=== PATIENT | female | born 1985 | race Caucasian/White ===

== ENCOUNTER 2025-02-28 16:01 | Observation (INO) | payer OTHER, SELFPAY ==
[2025-02-28] VITALS (19 sets, daily range): BP systolic 116–134; BP diastolic 60–76; PULSE 83–119; RESP 20–27; TEMP 36.6–37.2; O2SAT 95–100
--- NOTE | ~2025-02-28 | CT_ITS ---
EXAMINATION: CTA chest PE abdomen pel DATE: 02/28/2025 21:47 INDICATION: Shortness of breath. TECHNIQUE: Computed tomography angiography (CTA) of the chest was performed with 100 mL Omnipaque-350 intravenous contrast timed to evaluate the pulmonary arteries. Coronal maximum intensity projection 3D-reconstructions were created by the technologist. Computed tomography (CT) of the abdomen and pelvis was performed with intravenous contrast. Automated exposure control and iterative reconstruction technique were employed. The dose-length product was 2255.10 mGy-cm. COMPARISON: None. FINDINGS: CTA chest: There is mild dependent atelectasis bilaterally. No pleural effusion. The heart size is normal. No pericardial effusion. There is no pulmonary embolus. There is a small sliding hiatal hernia. There is mild thoracic spondylosis. CT abdomen and pelvis: The liver, gallbladder, spleen, pancreas, and adrenal glands are normal. There is mild bilateral hydronephrosis. The uterus is enlarged. There is a 7.6 x 13.8 x 13.6 cm mass in the uterus. The appendix is normal. There are no dilated loops of bowel. There are no pathologically en larged lymph nodes. There is physiologic fluid in the pelvis. There is mild lumbar spondylosis. IMPRESSION: 1. No pulmonary embolus. 2. 13.8 cm mass in the uterus. This finding may be a fibroid or a neoplasm such as sarcoma. 3. Mild bilateral hydronephrosis secondary to the enlarged uterus. Reviewed, dictated and finalized at location E.
--- NOTE | ~2025-02-28 | XR_ITS ---
Examination: XR chest 1V portable Clinical History: weak Comparison: None Technique: Portable AP Findings: Heart size normal. Lungs clear. No acute bony abnormality. IMPRESSION: 1. No acute cardiopulmonary findings given portable technique. Reviewed, dictated and finalized at location R.
--- NOTE | ~2025-02-28 | US_ITS ---
EXAMINATION: US pelvic complete DATE: 03/01/2025 16:12 INDICATION: Gravid uterus versus fibroids on prior CT TECHNIQUE: Multiple transabdominal sonographic images of the pelvis were obtained. COMPARISON: CT dated 02/28/2025 FINDINGS: The uterus measures 17.8 x 8.6 x 14.9 cm. The endometrial complex is expanded by a 14.6 x 13.5 x 6.1 cm soft tissue mass with heterogeneous echogenicity and with internal vascular flow on color Doppler. The right ovary measures 3.4 x 2.4 x 2.0 cm. The left ovary measures 3.6 x 2.9 x 3.7 cm. Vascular flow identified in both ovaries on color Doppler. There is no free fluid in the pelvis. IMPRESSION: 1. 14.6 x 13.5 x 6.1 cm soft tissue mass centrally within the uterus for which differential would include submucosal fibroid, large endometrial polyp or endometrial carcinoma. Would consider hysteroscopy for further evaluation. Reviewed, dictated and finalized at location A. IMPRESSION: 1. 14.6 x 13.5 x 6.1 cm soft tissue mass centrally within the uterus for which differential would include submucosal fibroid, large endometrial polyp or endom etrial carcinoma. Would consider hysteroscopy for further evaluation.
--- NOTE | ~2025-02-28 | CT_ITS ---
CT HEAD NON-CONTRAST Clinical History: hypersomnolence Comparison: None Technique: Unenhanced axial images skull base to vertex Coronal, sagittal reformats CT images acquired with automatic exposure control for dose reduction DLP: 681 mGy-cm Findings: Sulci, ventricles: Unremarkable. No intracerebral hemorrhage. No evidence acute territorial infarct. No mass effect, midline shift. Bony calvarium intact. Visualized paranasal sinuses: Left maxillary retention cyst. Mastoid air cells: Clear. IMPRESSION: 1. No acute intracranial findings. Reviewed, dictated and finalized at location R.
--- NOTE | 2025-02-28 18:05 | ED.GENADULT ---
HPI - General Adult General Chief complaint: Weakness <Tracie Parks, FIELD SERVICE CONSULTANT - Last Filed: 02/28/25 18:08> Stated complaint: dehydrated, weak, slept outside in heat 3 days <Trcaie Hartman September, FIELD SERVICE CONSULTANT - Last Filed: 02/28/25 18:08> Time Seen by Provider: 02/28/25 18:05 <Tracie Hartman September, FIELD SERVICE CONSULTANT - Last Filed: 02/28/25 18:08> Focused HPI: Elsy Clark is a 39 y/o female who presents with reports of not being able to eat or drink for the past 3 days. She says she was d/c from [facility] 3 days ago and when she got home she was locked out of her apartment, and cannot get in. She has been stuck outside for three days without help. GENERAL: Well-appearing, well-nourished, and in no acute distress. HEAD: Normocephalic, atraumatic. CHEST: Clear to auscultation. ?No respiratory distress. HEART: Regular rate and rhythm.? NEURO: ?Alert and oriented x3. Patient screened in triage and initial orders placed.? ?Additional care and disposition to be based upon?diagnostic testing and treatment. <Tracie Harmtan September, FIELD SERVICE CONSULTANT - Last Filed: 02/28/25 18:08> History of Present Illness HPI narrative: Agree with the above with the following additions/ corrections: patient denies any unilateral weakness head is instead a generalized weakness. She feels dehydrated. She lost her keys in did have her phone and this is why she was locked out of her apartment for 3 days. She states she could not contact anyone and the help that was supposed to arrive did not show up so instead she slept on the ground. She feels like she has the and rash from the grafts then because she urinated on herself she states her genitals And buttock hurt. She had no food or water. She denies any chest pain but has had a cough productive of sputum and feels short of breath. She states before this she had been having 3 days worth of diarrhea, 10 small bowel movements daily. She says her throat feels sore to swallow. <Vani Taylor MD - Last Filed: 03/02/25 08:13> Related Data Home medications: Home Medications ?Medication ?Instructions ?Recorded ?Confirmed ?Last Taken ?Type haloperidol 10 mg tablet 10 mg PO BID 03/01/25 03/01/25 Unknown History <Tracie Parks FIELD SERVICE CONSULTANT - Last Filed: 02/28/25 18:08> Allergies/adverse reactions: Allergies Allergy/AdvReac Type Severity Reaction Status Date / Time bee venom protein (honey Allergy Unknown Verified 03/01/25 03:03 bee) (bees) <Tracie Parks, FIELD SERVICE CONSULTANT - Last Filed: 02/28/25 18:08> [facility] Family History Family History: Family History (Updated 03/01/25 @ 03:00 by Betty Vasquez RN) Other Unknown family medical history <Tracie Parks, FIELD SERVICE CONSULTANT - Last Filed: 02/28/25 18:08> Social History Social History: Social History Smoking packs per day: 1 Smoking cigarettes per day: 20.0 Smoking status: Current every day smoker Tobacco type: cigarettes Alcohol intake: never Substance use: never Substance use type: does not use Lack of Transportation: YES Lack of Food: Never True Current Housing: I Have Housing Concerned About Future Housing: No Difficulty Paying Gas/Electric Bills: No Difficulty Paying for Meds: No Currently Unemployed: No Education: High School Diploma/GED Difficulty w/ Childcare or Family Care: No Spiritual care concerns: No <Tracie Parks, FIELD SERVICE CONSULTANT - Last Filed: 02/28/25 18:08> Exam Narrative: GENERAL: Well-appearing, well-nourished, and in no acute distress. HEAD: Normocephalic, atraumatic. EYES: Non injected, non icteric ENT: Nares clear, no rhinorrhea or epistaxis. Gross auditory acuity intact. Tacky mucous membranes. NECK: Supple. No meningismus. CHEST: Speaking in full sentences. No respiratory distress. HEART: Regular rate and rhythm. ABDOMEN: Soft, nondistended. No rigidity or guarding. Not peritoneal. EXTREMITIES: Normal range of motion. No lower extremity edema. SKIN: Warm, dry, no rash. NEURO: No focal deficits. Alert and oriented. Answering questions. Following commands. Normal speech without aphasia or dysarthria. PSYCH: Normal mood and affect. <Vani Taylor MD - Last Filed: 03/02/25 08:13> Course Vital Signs Vital signs: Vital Signs Temperature 97.8 F 02/28/25 16:07 Pulse Rate 100 02/28/25 16:07 Respiratory Rate 20 02/28/25 16:07 Blood Pressure 119/60 02/28/25 16:07 Pulse Oximetry 99 02/28/25 16:07 Oxygen Delivery Room Air 02/28/25 16:07 Temperature 97.8 F 03/02/25 03:22 Pulse Rate 89 03/02/25 03:22 Respiratory Rate 18 03/02/25 03:22 Blood Pressure 107/66 03/02/25 03:22 Pulse Oximetry 99 03/02/25 03:22 Oxygen Delivery Room Air 03/01/25 20:00 <Tracie Parks, FIELD SERVICE CONSULTANT - Last Filed: 02/28/25 18:08> Vital Signs Temperature 97.8 F 02/28/25 16:07 Pulse Rate 100 02/28/25 16:07 Respiratory Rate 20 02/28/25 16:07 Blood Pressure 119/60 02/28/25 16:07 Pulse Oximetry 99 02/28/25 16:07 Oxygen Delivery Room Air 02/28/25 16:07 Temperature 97.8 F 03/02/25 03:22 Pulse Rate 89 03/02/25 03:22 Respiratory Rate 18 03/02/25 03:22 Blood Pressure 107/66 03/02/25 03:22 Pulse Oximetry 99 03/02/25 03:22 Oxygen Delivery Room Air 03/01/25 20:00 <Vani Taylor MD - Last Filed: 03/02/25 08:13> Medical Decision Making MDM Narrative Medical decision making narrative: Patient presents with report of generalized weakness and concern her dehydration. She reports that she accidentally locked herself out of her apartment and was a bit unable to get inside so she instead slept outside but past 3 days was without food or water. In the ED she has vital signs within normal limits. She has a leukocytosis with a microcytic anemia , no prior for comparison. 1 L IV fluids ordered though I suspect stress response versus dehydration. She has a hyponatremia with no prior for comparison though 125. CPK within normal limits. PERC Rule not used due to HR = 100. Urinalysis only with trace ketones. Otherwise no signs of infection or marked dehydration. UDS And alcohol negative. TSH normal. Dimer greater than 2. Will proceed with CTA PE imaging and add abdomen and pelvis as well given her recent diarrhea and her nonspecific leukocytosis. test negative. BNP is mildly elevated although CXR normal. CTA still pending. Viral panel negative. Is reported the patient ambulates without any issue. I did discuss with the radiologist who interpreted patient's study as gravid uterus who confirms that it is not gravid but rather enlarged and with heterogeneous material more consistent with fibroids. Beta HCG quant <2.39. Nurse reports that patient continues to keep falling asleep on her assessments. Will obtain CT noncontrast. Patient is reassessed at 00:05. she is very somnolent. She will awake to verbal stimuli but keeps falling back asleep. She is protecting her airway however. She denies using any drugs recently. I did note that if she continued to be so sleepy and out of it like she is she would have to be admitted. She states I am sorry. Do not admit me. I just need to get my surgery and go home. when I asked what she meant she states for my leukemia. I asked her to tell me more, who had diagnosed her/told her she had leukemia and she states, I don't know...I think I might be confused. She at first states that she walked to a dollar store and purchased a phone but then she states that her phone is locked in the house she can not get into. Nurse does try to get a hold of Joey, her father. Because of patient's somnolence even when reassessed, I do believe she will need admitted. Although her hyponatremia of 125 is not particularly low, given her baseline is unknown and it is theoretically possible that her baseline is in the 140s for example, this may represent a precipitous decline. Repeat BMP is ordered as are urine Cr and 'lytes and patient is discussed with on-call hospitalist Dr. Guthrie. He recommends med tele. her temperature has been checked twice and she has remained afebrile. She is not hyper or hypotensive nor tachycardic. Nothing to suggest serotonin syndrome. Patient's psych medications have been written by Syed Harrison, a psychiatrist. Haldol recently filled though unknown if picked up/taking. <Vani Taylor MD - Last Filed: 03/02/25 08:13> Differential Diagnosis Differential Diagnosis: pneumonia, urinary tract infection, electrolyte abnormalities, rhabdomyolysis, symptomatic anemia, psycho genic <Vani Taylor MD - Last Filed: 03/02/25 08:13> Medical Records Medical records reviewed: Yes I reviewed the external patient's medical records. <Vani Taylor MD - Last Filed: 03/02/25 08:13> Medical records narrative: Patient has psychiatric medications per review of her home medication list/previous fills. <Vani Taylor MD - Last Filed: 03/02/25 08:13> Vital Signs Vital Signs: Vital Signs Temperature 97.8 F 02/28/25 16:07 Pulse Rate 100 02/28/25 16:07 Respiratory Rate 20 02/28/25 16:07 Blood Pressure 119/60 02/28/25 16:07 Pulse Oximetry 99 02/28/25 16:07 Oxygen Delivery Room Air 02/28/25 16:07 Temperature 97.8 F 03/02/25 03:22 Pulse Rate 89 03/02/25 03:22 Respiratory Rate 18 03/02/25 03:22 Blood Pressure 107/66 03/02/25 03:22 Pulse Oximetry 99 03/02/25 03:22 Oxygen Delivery Room Air 03/01/25 20:00 <Tracie Parks APRN - Last Filed: 02/28/25 18:08> Vital Signs Temperature 97.8 F 02/28/25 16:07 Pulse Rate 100 02/28/25 16:07 Respiratory Rate 20 02/28/25 16:07 Blood Pressure 119/60 02/28/25 16:07 Pulse Oximetry 99 02/28/25 16:07 Oxygen Delivery Room Air 02/28/25 16:07 Temperature 97.8 F 03/02/25 03:22 Pulse Rate 89 03/02/25 03:22 Respiratory Rate 18 03/02/25 03:22 Blood Pressure 107/66 03/02/25 03:22 Pulse Oximetry 99 03/02/25 03:22 Oxygen Delivery Room Air 03/01/25 20:00 <Vani Taylor MD - Last Filed: 03/02/25 08:13> Lab Data Result diagrams: 03/02/25 05:20 03/02/25 05:20 <Tracie Parks, FIELD SERVICE CONSULTANT - Last Filed: 02/28/25 18:08> Labs: Lab Results 02/28/25 02/28/25 02/28/25 Range/Units 18:23 18:59 19:48 WBC 16.6 H (4.5-10.0) K/mm3 RBC 4.32 (4.2-5.4) M/mm3 Hgb 9.4 L (12.0-15.0) g/dL Hct 31.8 L (37.0-47.0) % MCV 73.6 L (80-100) fl MCH 21.8 L (26-34) pg MCHC 29.6 L (32-36) g/dl RDW 23.3 H (11.5-14.5) % Plt Count 351 (150-375) k/mm3 MPV 11.0 H (7.4-10.4) fl Immature Gran % (Auto) 0.6 H (0-0.5) % Neut % (Auto) 80.6 H (45.5-73.1) % Lymph % (Auto) 12.7 L (18.3-44.2) % [place] % (Auto) 4.5 (2.6-8.5) % Eos % (Auto) 1.3 (0-4.4) % Baso % (Auto) 0.3 (0.2-1.2) % Lymph # (Auto) 2.11 (0.9-3.2) K/mm3 [place] # (Auto) 0.8 H (0.1-0.6) K/mm3 Eos # (Auto) 0.2 (0-0.3) K/mm3 Baso # (Auto) 0.1 (0.0-0.1) K/mm3 Abs Immat Gran (auto) 0.10 H (0.00-0.031) K/mm3 Absolute Neuts (auto) 13.4 H (1.3-6.7) K/mm3 Absolute Nucleated RBC 0.000 (0.0-0.012) K/mm3 Band Neutrophils % 0 (0-6) % Nucleated RBC % 0.0 (0.0-0.2) % Platelet Estimate Adequate (Adequate) % Immature Plt Fraction 6.1 (0.9-11.2) % Hypochromasia 1+ Anisocytosis 3+ Microcytosis 2+ (NORMAL) Schistocytes None seen D-Dimer 2.64 H (<0.48) ug/mL Sodium 125 L (137-145) mmol/L Potassium 4.7 (3.4-5.0) mmol/L Chloride 96 L (98-107) mmol/L Carbon Dioxide 18 L (22-30) mmol/L Anion Gap 11 (4-12) mmol/L BUN 5 L (7-17) mg/dL Creatinine 0.51 L (0.7-1.0) mg/dL Estim Creat Clear Calc Not Reportable Estimated GFR > 60 (59 - ) Glucose 104 (65-110) mg/dL Calcium 9.4 (8.4-10.2) mg/dL Magnesium 1.8 (1.6-2.3) mg/dL Total Bilirubin 0.9 (0.2-1.3) mg/dL AST 37 H (14-36) U/L ALT 26 (6-35) U/L Alkaline Phosphatase 69 (38-126) U/L Total Creatine Kinase 64 (30-135) U/L NT-Pro-B Natriuret Pep 403 H (19.9-100) pg/mL Total Protein 8.0 (6.3-8.2) g/dL Albumin 4.5 (3.5-5.1) g/dL TSH 1.420 (0.465-4.680) uIU/mL Serum HCG, Qual Negative Beta HCG, Quant < 2.39 mIU/ML Urine Color Yellow (Yellow) Urine Appearance Clear (Clear) Urine pH 6.0 (5.0-9.0) Ur Specific [place] 1.004 (1.001-1.035) Urine Protein Negative (Negative) mg/dL Urine Glucose (UA) Negative (Negative) mg/dL Urine Ketones Trace H (Negative) mg/dL Ur Blood (Man) Negative (Negative) Urine Nitrate Negative (Negative) Urine Bilirubin Negative (Negative) Urine Urobilinogen 0.2 (<2.0) mg/dL Leukocyte Esterase Rfl Negative (Negative) DENY/UL Urine Osmolality Pending Ur Random Sodium 6 meq/L Urine Creatinine 33.0 mg/dL Urine Opiates Screen Negative (Negative) Urine Methadone Screen Negative (Negative) Ur Barbiturates Screen Negative (Negative) Ur Phencyclidine Scrn Negative (Negative) Ur Amphetamine Screen Negative (Negative) U Benzodiazepines Scrn Negative (Negative) Urine Cocaine Screen Negative (Negative) U Cannabinoids Screen Negative (Negative) Ethyl Alcohol < 10 (<10) mg/dL Influenza A (RT-PCR) Negative (Negative) Influenza B (RT-PCR) Negative (Negative) RSV (RT-PCR) Negative (Negative) SARS-CoV-2 RNA (RT-PCR) Negative (Negative) <Tracie Parks, FIELD SERVICE CONSULTANT - Last Filed: 02/28/25 18:08> Lab Results 02/28/25 02/28/25 02/28/25 Range/Units 18:23 18:59 19:48 WBC 16.6 H (4.5-10.0) K/mm3 RBC 4.32 (4.2-5.4) M/mm3 Hgb 9.4 L (12.0-15.0) g/dL Hct 31.8 L (37.0-47.0) % MCV 73.6 L (80-100) fl MCH 21.8 L (26-34) pg MCHC 29.6 L (32-36) g/dl RDW 23.3 H (11.5-14.5) % Plt Count 351 (150-375) k/mm3 MPV 11.0 H (7.4-10.4) fl Immature Gran % (Auto) 0.6 H (0-0.5) % Neut % (Auto) 80.6 H (45.5-73.1) % Lymph % (Auto) 12.7 L (18.3-44.2) % [place] % (Auto) 4.5 (2.6-8.5) % Eos % (Auto) 1.3 (0-4.4) % Baso % (Auto) 0.3 (0.2-1.2) % Lymph # (Auto) 2.11 (0.9-3.2) K/mm3 [place] # (Auto) 0.8 H (0.1-0.6) K/mm3 Eos # (Auto) 0.2 (0-0.3) K/mm3 Baso # (Auto) 0.1 (0.0-0.1) K/mm3 Abs Immat Gran (auto) 0.10 H (0.00-0.031) K/mm3 Absolute Neuts (auto) 13.4 H (1.3-6.7) K/mm3 Absolute Nucleated RBC 0.000 (0.0-0.012) K/mm3 Band Neutrophils % 0 (0-6) % Nucleated RBC % 0.0 (0.0-0.2) % Platelet Estimate Adequate (Adequate) % Immature Plt Fraction 6.1 (0.9-11.2) % Hypochromasia 1+ Anisocytosis 3+ Microcytosis 2+ (NORMAL) Schistocytes None seen D-Dimer 2.64 H (<0.48) ug/mL Sodium 125 L (137-145) mmol/L Potassium 4.7 (3.4-5.0) mmol/L Chloride 96 L (98-107) mmol/L Carbon Dioxide 18 L (22-30) mmol/L Anion Gap 11 (4-12) mmol/L BUN 5 L (7-17) mg/dL Creatinine 0.51 L (0.7-1.0) mg/dL Estim Creat Clear Calc Not Reportable Estimated GFR > 60 (59 - ) Glucose 104 (65-110) mg/dL Calcium 9.4 (8.4-10.2) mg/dL Magnesium 1.8 (1.6-2.3) mg/dL Total Bilirubin 0.9 (0.2-1.3) mg/dL AST 37 H (14-36) U/L ALT 26 (6-35) U/L Alkaline Phosphatase 69 (38-126) U/L Total Creatine Kinase 64 (30-135) U/L NT-Pro-B Natriuret Pep 403 H (19.9-100) pg/mL Total Protein 8.0 (6.3-8.2) g/dL Albumin 4.5 (3.5-5.1) g/dL TSH 1.420 (0.465-4.680) uIU/mL Serum HCG, Qual Negative Beta HCG, Quant < 2.39 mIU/ML Urine Color Yellow (Yellow) Urine Appearance Clear (Clear) Urine pH 6.0 (5.0-9.0) Ur Specific [place] 1.004 (1.001-1.035) Urine Protein Negative (Negative) mg/dL Urine Glucose (UA) Negative (Negative) mg/dL Urine Ketones Trace H (Negative) mg/dL Ur Blood (Man) Negative (Negative) Urine Nitrate Negative (Negative) Urine Bilirubin Negative (Negative) Urine Urobilinogen 0.2 (<2.0) mg/dL Leukocyte Esterase Rfl Negative (Negative) DENY/UL Urine Osmolality Pending Ur Random Sodium 6 meq/L Urine Creatinine 33.0 mg/dL Urine Opiates Screen Negative (Negative) Urine Methadone Screen Negative (Negative) Ur Barbiturates Screen Negative (Negative) Ur Phencyclidine Scrn Negative (Negative) Ur Amphetamine Screen Negative (Negative) U Benzodiazepines Scrn Negative (Negative) Urine Cocaine Screen Negative (Negative) U Cannabinoids Screen Negative (Negative) Ethyl Alcohol < 10 (<10) mg/dL Influenza A (RT-PCR) Negative (Negative) Influenza B (RT-PCR) Negative (Negative) RSV (RT-PCR) Negative (Negative) SARS-CoV-2 RNA (RT-PCR) Negative (Negative) <Vani Taylor MD - Last Filed: 03/02/25 08:13> Imaging Data Attestation: I personally reviewed and interpreted this imaging study as follows: <Vani Taylor MD - Last Filed: 03/02/25 08:13> My impression: patient does have a very enlarged but heterogenous appearing uterus on my independent interpretation of CT <Vani Taylor MD - Last Filed: 03/02/25 08:13> Radiologist's impression: CTA Chest Stat Rad: Respiratory motion limits evaluation. No evidence of acute main / proximal central pulmonary embolism. Normal caliber aorta without evidence of dissection. No focal consolidation, pleural effusion or pneumothorax. CT abdomen pelvis with contrast stat rad: Gravid uterus. no bowel obstruction or inflammation. Normal appendix. Mild bilateral hydroureteronephrosis secondary to extrinsic compression. No free air or ascites. No biliary dilatation or calcified gallstone. CT Head stat rad: no evidence of acute intracranial abnormality. No ICH, mass effect or edema. No skull fracture. <Vani Taylor MD - Last Filed: 03/02/25 08:13> ECG Data EKG #1: Attestation: I personally reviewed and interpreted this ECG as follows: <Vani Taylor MD - Last Filed: 03/02/25 08:13> ECG completion date: 02/28/25 <Vnai Taylor MD - Last Filed: 03/02/25 08:13> ECG completion time: 19:20 <Vani Taylor MD - Last Filed: 03/02/25 08:13> Prior ECG tracings: not available for review ( None in the EMR) <Vani Taylor MD - Last Filed: 03/02/25 08:13> Interpretation: Normal sinus rhythm at a rate of 84 beats per minute. OK interval 161. QRS 77. QT / QTC 359/425. Good R-wave progression across the precordial leads. No T-wave inversions. <Vani Taylor MD - Last Filed: 03/02/25 08:13> Discharge Plan Discharge Clinical Impression: Leukocytosis, Microcytic anemia, Hyponatremia, Generalized weakness, Elevated brain natriuretic peptide (BNP) level, Altered mental status, Enlarged uterus <Tracie Parks APRN - Last Filed: 02/28/25 18:08> Patient Disposition: Still a Patient <Tracie Parks APRN - Last Filed: 02/28/25 18:08> Condition: Stable <Tracie Parks APRN - Last Filed: 02/28/25 18:08> Time of Disposition: 00:57 <Tracie Parks APRN - Last Filed: 02/28/25 18:08> 00:57 <Vani Taylor MD - Last Filed: 03/02/25 08:13>
[2025-02-28 18:35] LABS: Hematocrit 31.8 % (37.0-47.0); Hemoglobin 9.4 g/dL (12.0-15.0); Immature Granulocyte Percent A 0.6 % (0-0.5); Immature Platelet Fraction Pct 6.1 % (0.9-11.2); Lymphocytes Absolute Auto 2.11 K/mm3 (0.9-3.2); Mean Corpuscular HGB Conc 29.6 g/dl (32-36); Mean Corpuscular Hemoglobin 21.8 pg (26-34); Mean Corpuscular Volume 73.6 fl (80-100); Nucleated Red Blood Cells Absolute Auto 0.000 K/mm3 (0.0-0.012); Nucleated Red Blood Cells Perc 0.0 % (0.0-0.2); Platelet Count Result 351 k/mm3 (150-375); Red Blood Count 4.32 M/mm3 (4.2-5.4); White Blood Count 16.6 K/mm3 (4.5-10.0)
[2025-02-28 18:48] LABS: Alanine Aminotransferase 26 U/L (6-35); Albumin Level 4.5 g/dL (3.5-5.1); Alkaline Phosphatase 69 U/L (38-126); Anion Gap 11 mmol/L (4-12); Aspartate Amino Transferase 37 U/L (14-36); Bilirubin,Total 0.9 mg/dL (0.2-1.3); Blood Urea Nitrogen 5 mg/dL (7-17); Calcium 9.4 mg/dL (8.4-10.2); Carbon Dioxide 18 mmol/L (22-30); Chloride 96 mmol/L (98-107); Estimated Glomerular Filt Rate > 60; Glucose 104 mg/dL (65-110); Potassium 4.7 mmol/L (3.4-5.0); Sodium 125 mmol/L (137-145); Total Protein 8.0 g/dL (6.3-8.2)
--- NOTE | 2025-02-28 19:05 | ECG_ITS ---
Test Date: 2025-02-28 19:20:15 Measurements Intervals [place] Rate: 84 P: 43 NE: 161 QRS: 63 QRSD: 77 T: 23 QT: 359 QTc: 425 Interpretive Statements SINUS RHYTHM POSSIBLE LEFT ATRIAL ENLARGEMENT BASELINE ARTIFACT- I, III, AVR, AVL, AVF, V1-V2, V4-V6 BORDERLINE ECG No previous ECG available for comparison Electronically Signed On 02-28-2025 19:21:44 CDT by Jose Daniel Erwin D.O.
[2025-02-28 19:07] LABS: Band Neutrophils Percent 0 % (0-6); Schistocytes None Seen
[2025-02-28 19:08] LABS: Anisocytosis 3+; Hypochromasia 1+; Microcytosis 2+ (NORMAL)
[2025-02-28 19:19] LABS: Creatine Kinase 64 U/L (30-135)
[2025-02-28 19:39] LABS: Add Urine Microscopic? NO; Appearance Urine Clear (Clear); Glucose Urine UA Negative (Negative); Leukocyte Esterase Ur Negative LEU/UL (Negative); Nitrate Urine Negative (Negative); Specific Grav Ur 1.004 (1.001-1.035)
[2025-02-28 19:40] LABS: Cannabinoid Screen Urine Negative (Negative)
[2025-02-28] MEDS: SODIUM CHLORIDE 0.9% IV 1,000 ML 999 ML IV CONT (19:45)
[2025-02-28 19:51] LABS: Thyroid Stimulating Hormone 1.420 uIU/mL (0.465-4.680)
[2025-02-28 20:27] LABS: Influenza A QL RT-PCR Negative (Negative); Influenza B QL RT-PCR Negative (Negative); RSV RNA, RT-PCR Negative (Negative); SARS-CoV-2 RNA PCR Negative (Negative)
[2025-02-28 20:32] LABS: Magnesium 1.8 mg/dL (1.6-2.3)
[2025-02-28 20:48] LABS: NT Pro B Type Natriuretic Pept 403 pg/mL (19.9-100)
[2025-02-28 21:09] LABS: SPREG INTERNAL CONTROL Positive; Serum Qual hCG Negative
[2025-02-28 22:50] LABS: Beta HCG Quantitative < 2.39 mIU/ML
[2025-03-01] VITALS (15 sets, daily range): BP systolic 109–129; BP diastolic 52–66; PULSE 92–100; RESP 18–20; TEMP 36.5–36.6; O2SAT 95–100; BMI 35.3
--- NOTE | 2025-03-01 00:15 | PC.NURSE ---
Attempted to call family and left a voice message.
[2025-03-01 01:31] LABS: Anion Gap 6 mmol/L (4-12); Blood Urea Nitrogen 3 mg/dL (7-17); Calcium 8.8 mg/dL (8.4-10.2); Carbon Dioxide 21 mmol/L (22-30); Chloride 104 mmol/L (98-107); Estimated Glomerular Filt Rate > 60; Glucose 98 mg/dL (65-110); Potassium 3.9 mmol/L (3.4-5.0); Sodium 131 mmol/L (137-145)
--- NOTE | 2025-03-01 01:36 | PM.IMHP ---
H&P: HPI History of Present Illness Date/Time: 03/01/25 01:36 Chief Complaint: Dehydration Narrative: 39-year-old female with history of schizophrenia presents to [facility] ER on 02/28/2025 complaining of dehydration. She was discharged from [facility] 3 days prior. When she returned home she was locked out of her apartment, she reports she has been lying in the grass, she has not eaten or drinking much. Reports she was hospitalized at [facility] for schizophrenia, had diarrhea at the time but does not anymore. She tells me she was prescribed for medications, 1 was Haldol, another was time? (thyme)? But she cannot remember the other medications otherwise. She tells me she did not get them from a pharmacy but they gave them to her when she was discharged and that she was taking them.. She tells me she was not prescribed/on any medications prior to the [facility] admission. She dozes off the exam he keeps her eyes closed a continues to talk in provide a somewhat reliable history. She is A&O x3, tells me she feels as she has schizophrenia actively at this moment because she feels her body is wrapped in a blanket, otherwise she denies delusions or hallucinations. She is pleasant and cooperative otherwise. Medication review includes benztropine last filled in 2023, vitamin D 2 field in 2023 hydroxy is seen field in December 2024, olanzapine failed 12/21/2024, held off filled on 02/27/2025 at the dose of 10 mg daily. Review of Systems Review of Systems: All systems reviewed & are unremarkable except as noted in HPI and below (Subjective) Meds Home Medications and Allergies Allergies Allergy/AdvReac Type Severity Reaction Status Date / Time No Known Drug Allergies Allergy Verified 01/09/12 17:07 Vital Signs Vital Signs - 24 hr 02/28/25 16:07 02/28/25 18:58 02/28/25 18:59 Temperature 97.8 F 99.0 F Pulse Rate 100 90 90 Respiratory Rate 20 20 Blood Pressure 119/60 Pulse Oximetry 99 98 Oxygen Delivery Room Air 02/28/25 18:59 02/28/25 19:28 02/28/25 19:30 Temperature Pulse Rate 83 119 H Respiratory Rate 23 H 22 H Blood Pressure Pulse Oximetry 97 98 98 Oxygen Delivery Room Air 02/28/25 19:43 02/28/25 19:45 02/28/25 20:00 Temperature Pulse Rate 91 84 93 Respiratory Rate 26 H 26 H 25 H Blood Pressure 116/72 Pulse Oximetry 98 98 98 Oxygen Delivery 02/28/25 20:01 02/28/25 20:15 02/28/25 20:30 Temperature Pulse Rate 87 90 96 Respiratory Rate 22 H 24 H 26 H Blood Pressure 121/73 Pulse Oximetry 98 98 98 Oxygen Delivery 02/28/25 20:53 02/28/25 21:00 02/28/25 22:03 Temperature Pulse Rate 89 100 Respiratory Rate 22 H 27 H Blood Pressure Pulse Oximetry 98 100 96 Oxygen Delivery 02/28/25 22:41 02/28/25 23:15 02/28/25 23:21 Temperature Pulse Rate Respiratory Rate Blood Pressure 134/76 121/62 Pulse Oximetry 95 95 Oxygen Delivery 02/28/25 23:31 Temperature Pulse Rate Respiratory Rate Blood Pressure Pulse Oximetry 97 Oxygen Delivery Exam Const: General: comfortable and no acute distress Other: A&O x3 HENMT: Mouth: Yes dry mucous membranes Neck: Neck: supple Resp: Effort & Inspection: normal respiratory effort Auscultation: clear to auscultation bilaterally Cardio: Rate: regular rate Rhythm: regular rhythm Heart sounds: no murmurs GI: Inspection: non-distended GI Palp: Yes Soft to palpation : General: Yes bladder normal to palpation Neuro: Motor exam (neuro): 5/5 motor strength present throughout Extrem: Other: Trace pitting edema bilateral lower extremities H&P: Results Labs Labs: Short CBC 02/28/25 Range/Units 18:23 WBC 16.6 H (4.5-10.0) K/mm3 Hgb 9.4 L (12.0-15.0) g/dL Hct 31.8 L (37.0-47.0) % Plt Count 351 (150-375) k/mm3 BMP 02/28/25 03/01/25 18:23 01:08 Sodium 125 L 131 L Potassium 4.7 3.9 Chloride 96 L 104 Carbon Dioxide 18 L 21 L BUN 5 L 3 L Creatinine 0.51 L 0.53 L Glucose 104 98 Calcium 9.4 8.8 Cardiac Enzymes 02/28/25 Range/Units 18:23 Total Creatine Kinase 64 (30-135) U/L Liver Function 02/28/25 Range/Units 18:23 Total Bilirubin 0.9 (0.2-1.3) mg/dL AST 37 H (14-36) U/L ALT 26 (6-35) U/L Alkaline Phosphatase 69 (38-126) U/L Albumin 4.5 (3.5-5.1) g/dL Urine 02/28/25 Range/Units 18:59 Urine Color Yellow (Yellow) Urine Appearance Clear (Clear) Urine pH 6.0 (5.0-9.0) Ur Specific [place] 1.004 (1.001-1.035) Urine Protein Negative (Negative) mg/dL Urine Glucose (UA) Negative (Negative) mg/dL Assessment and Plan Assessment and plan (1) Hyponatremia: Code(s): E87.1 - Hypo-osmolality and hyponatremia Status: Acute (2) Elevated brain natriuretic peptide (BNP) level: Code(s): R79.89 - Other specified abnormal findings of blood chemistry Status: Acute (3) Leukocytosis: Code(s): D72.829 - Elevated white blood cell count, unspecified Status: Acute (4) Altered mental status: Code(s): R41.82 - Altered mental status, unspecified Status: Acute Plan 39-year-old female with history of schizophrenia presents to [facility] ER on 02/28/2025 complaining of dehydration. She was discharged from [facility] 3 days prior. When she returned home she was locked out of her apartment, she reports she has been lying in the grass, she has not eaten or drinking much. Reports she was hospitalized at [facility] for schizophrenia, had diarrhea at the time but does not anymore. She tells me she was prescribed for medications, 1 was Haldol, another was time? (thyme)? But she cannot remember the other medications otherwise. She tells me she did not get them from a pharmacy but they gave them to her when she was discharged and that she was taking them.. She tells me she was not prescribed/on any medications prior to the [facility] admission. She dozes off the exam he keeps her eyes closed a continues to talk in provide a somewhat reliable history. She is A&O x3, tells me she feels as she has schizophrenia actively at this moment because she feels her body is wrapped in a blanket, otherwise she denies delusions or hallucinations. She is pleasant and cooperative otherwise. Medication review includes benztropine last filled in 2023, vitamin D 2 field in 2023 hydroxy is seen field in December 2024, olanzapine failed 12/21/2024, held off filled on 02/27/2025 at the dose of 10 mg daily. ----- Hyponatremia: Upon arrival her sodium is 125. We have no baseline to compare. She was just hospitalized recently, had diarrhea at that time, after discharge she reports she is not had much to eat or drink in 3 days. Clinically, she appears dry. She received 1 L normal saline bolus in the ER and her sodium is now 131. At this time we will hold off any more fluids and recheck the BMP in another 4 hours. It is unclear whether her odd behaviors due to hyponatremia but it is unlikely. Obtain records from [facility]. Leukocytosis: Chest x-ray, CT chest abdomen pelvis, urinalysis, head CT did not demonstrate any infectious cause, this is more likely due to dehydration. Afebrile. Continue to monitor. Elevated BMP: She has trace pitting edema, otherwise does not appear fluid overloaded, more so clinically hypovolemic. Altered mental status: Unclear baseline, she reports schizophrenia and feels as if she has active schizophrenia now. Obtain records from [facility], it is unclear whether she is experiencing adverse effects of haloperidol or other antipsychotics or if she is currently undertreated for schizophrenia. Consult Psychiatry. Quad viral screen, U tox, urinalysis did not demonstrate any specific cause to cause altered mental status. CT head without acute findings. Continue to monitor otherwise. Incidentally she is found to have gravid uterus? Serum beta HCG negative. ER physician tells me she spoke with Radiology and it is not gravid uterus but fibroids. Patient does not have any suprapubic pain, will order transvaginal ultrasound. Follow-up with OB Gyne. ----- Patient wishes to be full code. SCDs. Saline lock IV. Fall precautions, ambulate with assistance. Hospitalist MIPS Advance Care Plan I have confirmed that the patient's Advanced Care Plan is present, code status is documented, or surrogate decision maker is listed in patient medical record.: Yes Medication Reconciliation I have utilized all available resources to obtain, update and review the patients current medications (includes all prescriptions, OTC, herbals, cannabis, and nutritional supplements).: Yes
--- NOTE | 2025-03-01 02:35 | ADMGEN ---
This patient, Elsy Clark, was admitted to Medical Room 253-01. Patient/family oriented to hospital policies and general routines including ID bracelet, bed and alarms, visiting hours, pain management, procedures, bathroom and other care routines, personal items, smoking policy, room service/diet, and visiting hours. Information on how to activate the Rapid Response Team has been discussed. Patient/Family are encouraged to report perceived risks to care and to ask questions if they do not understand what they are told or what they should do.
[2025-03-01 04:26] LABS: Hematocrit 29.5 % (37.0-47.0); Hemoglobin 8.6 g/dL (12.0-15.0); Immature Granulocyte Percent A 0.3 % (0-0.5); Lymphocytes Absolute Auto 2.05 K/mm3 (0.9-3.2); Mean Corpuscular HGB Conc 29.2 g/dl (32-36); Mean Corpuscular Hemoglobin 22.1 pg (26-34); Mean Corpuscular Volume 75.6 fl (80-100); Nucleated Red Blood Cells Absolute Auto 0.000 K/mm3 (0.0-0.012); Nucleated Red Blood Cells Perc 0.0 % (0.0-0.2); Platelet Count Result 361 k/mm3 (150-375); Red Blood Count 3.90 M/mm3 (4.2-5.4); White Blood Count 9.3 K/mm3 (4.5-10.0)
[2025-03-01 04:40] LABS: Anion Gap 8 mmol/L (4-12); Blood Urea Nitrogen 3 mg/dL (7-17); Calcium 8.7 mg/dL (8.4-10.2); Carbon Dioxide 20 mmol/L (22-30); Chloride 105 mmol/L (98-107); Estimated CRCL calculation 115 ml/min; Estimated Glomerular Filt Rate > 60; Glucose 88 mg/dL (65-110); Magnesium 2.1 mg/dL (1.6-2.3); Potassium 3.7 mmol/L (3.4-5.0); Sodium 133 mmol/L (137-145)
[2025-03-01 05:00] LABS: Anisocytosis 2+; Schistocytes None Seen
[2025-03-01 05:01] LABS: Hypochromasia 1+
[2025-03-01 05:02] LABS: Ovalocytes 1+
[2025-03-01 05:04] LABS: Polychromasia Occasional
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
--- NOTE | 2025-03-01 12:45 | PC.NURSE ---
father's phone number provided to KHUSHBOO Hanna following her visit with pt
--- NOTE | 2025-03-01 15:41 | PM.IMPN ---
Progress Note: A&P Assessment and Plan (1) Hyponatremia: Code(s): E87.1 - Hypo-osmolality and hyponatremia Status: Acute (2) Elevated brain natriuretic peptide (BNP) level: Code(s): R79.89 - Other specified abnormal findings of blood chemistry Status: Acute (3) Leukocytosis: Code(s): D72.829 - Elevated white blood cell count, unspecified Status: Acute (4) Altered mental status: Code(s): R41.82 - Altered mental status, unspecified Status: Acute Plan 39-year-old female with history of schizophrenia presents to [facility] ER on 02/28/2025 complaining of dehydration. She was discharged from [facility] 3 days prior. When she returned home she was locked out of her apartment, she reports she has been lying in the grass, she has not eaten or drinking much. Reports she was hospitalized at [facility] for schizophrenia, had diarrhea at the time but does not anymore. She tells me she was prescribed for medications, 1 was Haldol, another was time? (thyme)? But she cannot remember the other medications otherwise. She tells me she did not get them from a pharmacy but they gave them to her when she was discharged and that she was taking them.. She tells me she was not prescribed/on any medications prior to the [facility] admission. She dozes off the exam he keeps her eyes closed a continues to talk in provide a somewhat reliable history. She is A&O x3, tells me she feels as she has schizophrenia actively at this moment because she feels her body is wrapped in a blanket, otherwise she denies delusions or hallucinations. She is pleasant and cooperative otherwise. Medication review includes benztropine last filled in 2023, vitamin D 2 field in 2023 hydroxy is seen field in December 2024, olanzapine failed 12/21/2024, held off filled on 02/27/2025 at the dose of 10 mg daily. ----- Hyponatremia: Upon arrival her sodium is 125. We have no baseline to compare. She was just hospitalized recently, had diarrhea at that time, after discharge she reports she is not had much to eat or drink in 3 days. Clinically, she appears dry. She received 1 L normal saline bolus in the ER and her sodium is now 131. At this time we will hold off any more fluids and recheck the BMP in another 4 hours. It is unclear whether her odd behaviors due to hyponatremia but it is unlikely. Obtain records from [facility]. Leukocytosis: Chest x-ray, CT chest abdomen pelvis, urinalysis, head CT did not demonstrate any infectious cause, this is more likely due to dehydration. Afebrile. Continue to monitor. Elevated BMP: She has trace pitting edema, otherwise does not appear fluid overloaded, more so clinically hypovolemic. Altered mental status: Unclear baseline, she reports schizophrenia and feels as if she has active schizophrenia now. Obtain records from [facility], it is unclear whether she is experiencing adverse effects of haloperidol or other antipsychotics or if she is currently undertreated for schizophrenia. Consult Psychiatry. Quad viral screen, U tox, urinalysis did not demonstrate any specific cause to cause altered mental status. CT head without acute findings. Continue to monitor otherwise. Incidentally she is found to have gravid uterus? Serum beta HCG negative. ER physician tells me she spoke with Radiology and it is not gravid uterus but fibroids. Patient does not have any suprapubic pain, will order transvaginal ultrasound. Follow-up with OB Gyne. ----- Patient wishes to be full code. SCDs. Saline lock IV. Fall precautions, ambulate with assistance. 03/01 haldol 10 mg bid started as directed per [facility] Time Spent With Patient Time with patient: 25 - 35 minutes Subjective Date/time seen: 03/01/25 15:41 Interval history: 39-year-old female with history of schizophrenia presents to [facility] ER on 02/28/2025 complaining of dehydration. She was discharged from [facility] 3 days prior. When she returned home she was locked out of her apartment, she reports she has been lying in the grass, she has not eaten or drinking much. Reports she was hospitalized at [facility] for schizophrenia, had diarrhea at the time but does not anymore. She tells me she was prescribed for medications, 1 was Haldol, another was time? (thyme)? But she cannot remember the other medications otherwise. She tells me she did not get them from a pharmacy but they gave them to her when she was discharged and that she was taking them.. She tells me she was not prescribed/on any medications prior to the [facility] admission. She dozes off the exam he keeps her eyes closed a continues to talk in provide a somewhat reliable history. She is A&O x3, tells me she feels as she has schizophrenia actively at this moment because she feels her body is wrapped in a blanket, otherwise she denies delusions or hallucinations. She is pleasant and cooperative otherwise. Medication review includes benztropine last filled in 2023, vitamin D 2 field in 2023 hydroxy is seen field in December 2024, olanzapine failed 12/21/2024, held off filled on 02/27/2025 at the dose of 10 mg daily. pt is seen and examined. psych is following Review of Systems Review of Systems: All systems reviewed & are unremarkable except as noted in HPI and below (Subjective) Exam Const: General: comfortable and no acute distress Other: A&O x3 HENMT: Mouth: Yes dry mucous membranes Neck: Neck: supple Resp: Effort & Inspection: normal respiratory effort Auscultation: clear to auscultation bilaterally Cardio: Rate: regular rate Rhythm: regular rhythm Heart sounds: no murmurs GI: Inspection: non-distended : General: Yes bladder normal to palpation Bimanual exam- vagina & uterus: bladder normal to palpation Neuro: Motor exam (neuro): 5/5 motor strength present throughout Extrem: Other: Trace pitting edema bilateral lower extremities Objective Data Vital Signs Vital Signs: Vital Signs - 24 hr 02/28/25 16:07 02/28/25 18:58 02/28/25 18:59 Temperature 97.8 F 99.0 F Pulse Rate 100 90 90 Respiratory Rate 20 20 Blood Pressure 119/60 Pulse Oximetry 99 98 Oxygen Delivery Room Air 02/28/25 18:59 02/28/25 19:28 02/28/25 19:30 Temperature Pulse Rate 83 119 H Respiratory Rate 23 H 22 H Blood Pressure Pulse Oximetry 97 98 98 Oxygen Delivery Room Air 02/28/25 19:43 02/28/25 19:45 02/28/25 20:00 Temperature Pulse Rate 91 84 93 Respiratory Rate 26 H 26 H 25 H Blood Pressure 116/72 Pulse Oximetry 98 98 98 Oxygen Delivery 02/28/25 20:01 02/28/25 20:15 02/28/25 20:30 Temperature Pulse Rate 87 90 96 Respiratory Rate 22 H 24 H 26 H Blood Pressure 121/73 Pulse Oximetry 98 98 98 Oxygen Delivery 02/28/25 20:53 02/28/25 21:00 02/28/25 22:03 Temperature Pulse Rate 89 100 Respiratory Rate 22 H 27 H Blood Pressure Pulse Oximetry 98 100 96 Oxygen Delivery 02/28/25 22:41 02/28/25 23:15 02/28/25 23:21 Temperature Pulse Rate Respiratory Rate Blood Pressure 134/76 121/62 Pulse Oximetry 95 95 Oxygen Delivery 02/28/25 23:31 02/28/25 23:52 03/01/25 00:02 Temperature Pulse Rate Respiratory Rate Blood Pressure Pulse Oximetry 97 96 96 Oxygen Delivery 03/01/25 00:15 03/01/25 00:21 03/01/25 00:30 Temperature Pulse Rate Respiratory Rate Blood Pressure 129/66 Pulse Oximetry 96 96 96 Oxygen Delivery 03/01/25 01:10 03/01/25 01:35 03/01/25 01:41 Temperature Pulse Rate Respiratory Rate Blood Pressure 129/66 Pulse Oximetry 96 96 95 Oxygen Delivery 03/01/25 02:35 03/01/25 02:52 03/01/25 03:35 Temperature 97.7 F 97.7 F Pulse Rate 97 92 92 Respiratory Rate 20 20 Blood Pressure 111/57 L 117/57 L Pulse Oximetry 97 97 Oxygen Delivery 03/01/25 04:00 03/01/25 05:25 03/01/25 08:00 Temperature Pulse Rate 100 94 Respiratory Rate Blood Pressure Pulse Oximetry Oxygen Delivery Room Air 03/01/25 08:40 03/01/25 14:39 Temperature 97.9 F Pulse Rate 93 Respiratory Rate 20 Blood Pressure 120/64 Pulse Oximetry 100 Oxygen Delivery Room Air Intake/Output Intake/Output: Intake & Output 02/26/25 02/27/25 02/28/25 03/01/25 23:59 23:59 23:59 23:59 Intake Total 1000 720 Balance 1000 720 Meds/Results Medications: Active Medications Generic Name Dose Route Start Last Admin Trade Name Freq PRN Reason Stop Dose Admin Acetaminophen 650 mg 03/01/25 00:58 Acetaminophen 325 Mg Tablet PO Q4H PRN Mild Pain (1-3) or Fever Ondansetron HCl 4 mg 03/01/25 00:58 Ondansetron Inj 4 Mg/2 Ml Vial IV PUSH Q4H PRN Nausea Radiology Results: ITS Impressions Chest X-Ray 02/28/25 19:14 IMPRESSION: 1. No acute cardiopulmonary findings given portable technique. Head CT 03/01/25 07:33 IMPRESSION: 1. No acute intracranial findings. Chest/Abdomen/Pelvis CTA 03/01/25 08:15 IMPRESSION: 1. No pulmonary embolus. 2. 13.8 cm mass in the uterus. This finding may be a fibroid or a neoplasm such as sarcoma. 3. Mild bilateral hydronephrosis secondary to the enlarged uterus. Labs Labs: Laboratory Results - last 24 hr 02/28/25 02/28/25 02/28/25 18:23 18:59 19:48 WBC 16.6 H RBC 4.32 Hgb 9.4 L Hct 31.8 L MCV 73.6 L MCH 21.8 L MCHC 29.6 L RDW 23.3 H Plt Count 351 MPV 11.0 H Immature Gran % (Auto) 0.6 H Neut % (Auto) 80.6 H Lymph % (Auto) 12.7 L Dixon % (Auto) 4.5 Eos % (Auto) 1.3 Baso % (Auto) 0.3 Lymph # (Auto) 2.11 Dixon # (Auto) 0.8 H Eos # (Auto) 0.2 Baso # (Auto) 0.1 Abs Immat Gran (auto) 0.10 H Absolute Neuts (auto) 13.4 H Absolute Nucleated RBC 0.000 Band Neutrophils % 0 Nucleated RBC % 0.0 Platelet Estimate Adequate % Immature Plt Fraction 6.1 Polychromasia Hypochromasia 1+ Anisocytosis 3+ Microcytosis 2+ Ovalocytes Schistocytes None seen D-Dimer 2.64 H Sodium 125 L Potassium 4.7 Chloride 96 L Carbon Dioxide 18 L Anion Gap 11 BUN 5 L Creatinine 0.51 L Estim Creat Clear Calc Not Reportable Estimated GFR > 60 Glucose 104 Calcium 9.4 Phosphorus Magnesium 1.8 Total Bilirubin 0.9 AST 37 H ALT 26 Alkaline Phosphatase 69 Total Creatine Kinase 64 NT-Pro-B Natriuret Pep 403 H Total Protein 8.0 Albumin 4.5 TSH 1.420 Serum HCG, Qual Negative Beta HCG, Quant < 2.39 Urine Color Yellow Urine Appearance Clear Urine pH 6.0 Ur Specific [place] 1.004 Urine Protein Negative Urine Glucose (UA) Negative Urine Ketones Trace H Ur Blood (Man) Negative Urine Nitrate Negative Urine Bilirubin Negative Urine Urobilinogen 0.2 Leukocyte Esterase Rfl Negative Ur Random Sodium 6 Urine Creatinine 33.0 Urine Opiates Screen Negative Urine Methadone Screen Negative Ur Barbiturates Screen Negative Ur Phencyclidine Scrn Negative Ur Amphetamine Screen Negative U Benzodiazepines Scrn Negative Urine Cocaine Screen Negative U Cannabinoids Screen Negative Ethyl Alcohol < 10 Influenza A (RT-PCR) Negative Influenza B (RT-PCR) Negative RSV (RT-PCR) Negative SARS-CoV-2 RNA (RT-PCR) Negative 03/01/25 03/01/25 01:08 04:11 WBC 9.3 RBC 3.90 L Hgb 8.6 L Hct 29.5 L MCV 75.6 L MCH 22.1 L MCHC 29.2 L RDW 23.8 H Plt Count 361 MPV 11.7 H Immature Gran % (Auto) 0.3 Neut % (Auto) 66.0 Lymph % (Auto) 22.1 Dixon % (Auto) 6.9 Eos % (Auto) 4.2 Baso % (Auto) 0.5 Lymph # (Auto) 2.05 Dixon # (Auto) 0.6 Eos # (Auto) 0.4 H Baso # (Auto) 0.1 Abs Immat Gran (auto) 0.03 Absolute Neuts (auto) 6.1 Absolute Nucleated RBC 0.000 Band Neutrophils % Not Reportable Nucleated RBC % 0.0 Platelet Estimate Adequate % Immature Plt Fraction Polychromasia Occasional Hypochromasia 1+ Anisocytosis 2+ Microcytosis Ovalocytes 1+ Schistocytes None seen D-Dimer Sodium 131 L 133 L Potassium 3.9 3.7 Chloride 104 105 Carbon Dioxide 21 L 20 L Anion Gap 6 8 BUN 3 L 3 L Creatinine 0.53 L 0.57 L Estim Creat Clear Calc Not Reportable 115 Estimated GFR > 60 > 60 Glucose 98 88 Calcium 8.8 8.7 Phosphorus 3.6 Magnesium 2.1 Total Bilirubin AST ALT Alkaline Phosphatase Total Creatine Kinase NT-Pro-B Natriuret Pep Total Protein Albumin TSH Serum HCG, Qual Beta HCG, Quant Urine Color Urine Appearance Urine pH Ur Specific [place] Urine Protein Urine Glucose (UA) Urine Ketones Ur Blood (Man) Urine Nitrate Urine Bilirubin Urine Urobilinogen Leukocyte Esterase Rfl Ur Random Sodium Urine Creatinine Urine Opiates Screen Urine Methadone Screen Ur Barbiturates Screen Ur Phencyclidine Scrn Ur Amphetamine Screen U Benzodiazepines Scrn Urine Cocaine Screen U Cannabinoids Screen Ethyl Alcohol Influenza A (RT-PCR) Influenza B (RT-PCR) RSV (RT-PCR) SARS-CoV-2 RNA (RT-PCR)
[2025-03-01] MEDS: HALOPERIDOL 5 MG TABLET 10 MG PO (17:55)
[2025-03-01] MEDS: ACETAMINOPHEN 325 MG TABLET 650 MG PO (22:16)
[2025-03-02 03:22] VITALS: BP 107/66; PULSE 89; RESP 18; TEMP 36.6; O2SAT 99
[2025-03-02 05:49] LABS: Hematocrit 28.1 % (37.0-47.0); Hemoglobin 8.1 g/dL (12.0-15.0); Immature Platelet Fraction Pct 4.2 % (0.9-11.2); Mean Corpuscular HGB Conc 28.8 g/dl (32-36); Mean Corpuscular Hemoglobin 21.8 pg (26-34); Mean Corpuscular Volume 75.7 fl (80-100); Platelet Count Result 295 k/mm3 (150-375); Red Blood Count 3.71 M/mm3 (4.2-5.4); White Blood Count 10.3 K/mm3 (4.5-10.0)
[2025-03-02 06:16] LABS: Anion Gap 4 mmol/L (4-12); Blood Urea Nitrogen 6 mg/dL (7-17); Calcium 8.4 mg/dL (8.4-10.2); Carbon Dioxide 23 mmol/L (22-30); Chloride 107 mmol/L (98-107); Estimated CRCL calculation 118 ml/min; Estimated Glomerular Filt Rate > 60; Glucose 86 mg/dL (65-110); Potassium 3.7 mmol/L (3.4-5.0); Sodium 134 mmol/L (137-145)
[2025-03-02] MEDS: HALOPERIDOL 5 MG TABLET 10 MG PO (08:22)
--- NOTE | 2025-03-02 12:34 | PM.DS ---
DS: Admitting Diagnosis Discharge Date 03/02 Admitting Diagnosis hyponatremia DS: Summary Hospital Course Hospital Course: 39-year-old female with history of schizophrenia presents to [facility] ER on 02/28/2025 complaining of dehydration. She was discharged from [facility] 3 days prior. When she returned home she was locked out of her apartment, she reports she has been lying in the grass, she has not eaten or drinking much. Reports she was hospitalized at [facility] for schizophrenia, had diarrhea at the time but does not anymore. She tells me she was prescribed for medications, 1 was Haldol, another was time? (thyme)? But she cannot remember the other medications otherwise. She tells me she did not get them from a pharmacy but they gave them to her when she was discharged and that she was taking them.. She tells me she was not prescribed/on any medications prior to the [facility] admission. She dozes off the exam he keeps her eyes closed a continues to talk in provide a somewhat reliable history. She is A&O x3, tells me she feels as she has schizophrenia actively at this moment because she feels her body is wrapped in a blanket, otherwise she denies delusions or hallucinations. She is pleasant and cooperative otherwise. Medication review includes benztropine last filled in 2023, vitamin D 2 field in 2023 hydroxy is seen field in December 2024, olanzapine failed 12/21/2024, held off filled on 02/27/2025 at the dose of 10 mg daily. Hyponatremia resolved. Psych was consulted and saw pt for an eval. Care coordination was following for placement/further f/u. Recommendations from psych are: Elsy was given Haldol Decanoate 200 mg on February 27, 2025 and was discharged on Haldol 10 mg twice a day. She should continue Haldol PO 10 mg BID for several weeks before being tapered off while assessed by a psychiatric care provider to monitor for destabilization and side effects. Status at Discharge Functional status at discharge: independent ambulation Overall status at discharge: patient is progressing back to baseline Time Spent with Patient Time attestation: Total time spent providing and/or coordinating discharge services: Time spent: Less than 30 minutes Exam Const: General: comfortable Cardio: Rate: regular rate Rhythm: regular rhythm GI: GI Palp: Yes Soft to palpation Auscultation: normal bowel sounds DS: Data Data Completed and Pending Labs on day of discharge: Labs from last 24 hours 03/02/25 05:20 WBC 10.3 H RBC 3.71 L Hgb 8.1 L Hct 28.1 L MCV 75.7 L MCH 21.8 L MCHC 28.8 L RDW 23.9 H Plt Count 295 MPV 11.1 H % Immature Plt Fraction 4.2 Sodium 134 L Potassium 3.7 Chloride 107 Carbon Dioxide 23 Anion Gap 4 BUN 6 L Creatinine 0.56 L Estim Creat Clear Calc 118 Estimated GFR > 60 Glucose 86 Calcium 8.4 Discharge Plan Discharge Attending physician on discharge: Wilfredo Dale Consulting providers: Harris Ladd Discharging Clinician: Kimberly Cuellar Patient Disposition: Home Activity: may shower Diet: regular Discharge Instructions: PLease continue Haldol PO 10 mg twice a day for several weeks before being tapered off while assessed by a psychiatric care provider to monitor for destabilization and side effects. Please f/u with your psych within a week after discharge or sooner if needed. If you have any suicidal ideation, please come to ED right away. Patient Instructions: Antibiotic Form Patient Language: Kyrgyz Stand Alone Forms: General Discharge Information Follow-up/Referrals: PHYSICIAN,REGISTERED DENTAL HYGIENIST [Primary Care Provider, Internal Medicine] - 2 Weeks Discharge Medications: Continued haloperidol 10 mg tablet 10 mg PO BID Date of admission: 03/01/25 00:58 Primary Care Provider: PHYSICIAN,REGISTERED DENTAL HYGIENIST Admitting Provider: Priya Guthrie Attending physician on admission: Priya Guthrie Condition: Stable Hospitalist MIPS Heart Failure (Exclusion) Patient has history of Heart Transplant or Left Ventricular Assistive Device?: No IF YES, STOP HERE Heart Failure (Qualifier) Patient has current or prior documentation of LVEF less than or equal to 40%, or mod/servere depressed LVSF?: No IF NO, STOP HERE
[2025-03-06 11:08] LABS: Osmolality, Serum 266 mOsmol/kg (275-295)
[2025-03-06 12:08] LABS: Osmolality, Urine 110 mOsmol/kg (.)
== END 2025-03-02 15:03 | disposition home or self-care (01) ==
LOC: ANHED 03-01 00:57 → ANH2MED 03-01 12:27
PROVIDERS: Nurse Practitioner; Nurse Practitioner Family; Admitting Provider General Practice; Emergency Provider Student in an Organized Health Care Education/Training Program; Visit Provider Internal Medicine
DX: F20.9 Schizophrenia, unspecified (principal); R41.82 Altered mental status, unspecified; F32.89 Other specified depressive episodes; E87.1 Hypo-osmolality and hyponatremia; R79.89 Other specified abnormal findings of blood chemistry; D72.829 Elevated white blood cell count, unspecified; N13.1 Hydronephrosis with ureteral stricture, not elsewhere classified; N85.2 Hypertrophy of uterus; E86.0 Dehydration; D50.9 Iron deficiency anemia, unspecified; R05.9 Cough, unspecified; Z20.822 Contact with and (suspected) exposure to COVID-19; F17.210 Nicotine dependence, cigarettes, uncomplicated
CPT/HCPCS: 36415; 70450; 71045; 71275; 74177; 76856; 80048; 80053; 80307; 81003; 82077; 82550; 82570; 83735; 83880; 83930; 83935; 84100; 84300; 84443; 84702; 84703; 85025; 85027; 85055; 85380; 87637; 93005; 96360; 99285; A9270; G0378; J7030; Q9967

== ENCOUNTER 2025-03-05 17:59 | Emergency (ER) | payer OTHER, SELFPAY ==
--- OUTSIDE RECORDS SUMMARY | 2025-03-05 18:02 | XMS_ITS | Encounter Summary ---
Author Organization [facility] Address [address] [place] [address] Phone Care Team Providers Care Cement Worker Name Role Phone Isabella Serna MD Unavailable [phone] Betty Lao Primary Care Provider + Reason for Visit * Reason Comments Medication Refill Encounter Details Date Type Department Care Team (Late st Contact Info) Description 09/16/2024 Refill [facility] - [facility] [address] [place] [id number] Betty Lao PAC [address] [place] [address] Medication Refill Social History Tobacco Use Types Packs/Day Years Used Date Smoking Tobacco: Every Day Cigarettes Smokeless Tobacco: Never Alcohol Use Standard Drinks/Week Comments No 0 (1 standard drink = 0.6 oz pur e alcohol) PHQ-2 Answer Date Recorded Total Score - Questions 1-9 0 02/21 Sexually Active Control Partners Comments Never Comments No Sex and Gender Information Value Date Recorded Sex Assigned at Not on file Legal Sex Female 7:34 PM CDT Gender Identity Not on file Sexual Orientation Not on file documented as of this encounter Miscellaneous Notes * Telephone Encounter - Betty Lao PAC - 09/18/2024 5:49 PM CDT Will recheck labs at next ov and see if needed * Telephone Encounter - Libia Villavicencio RN - 09/18/2024 10:41 AM CDT Medication failed the protocol, provider to review and approve the medication order if appropriate. Requested Prescriptions Pending Prescriptions Disp Refills ergocalciferol (VITAMIN D) 97667 UNIT Capsule [Pharmacy Med Name: VITAMIN D2 1.25MG(50,000 UNIT)] 12 Capsule 0 Sig: TAKE 1 CAPSULE BY MOUTH ONCE A WEEK Vitamin Supplements (Adult) Protocol Failed - 09/18/2024 10:41 AM Failed - Vitamin D dose not greater than 1.25mg Passed - Visit with relevant provider in past 12 months or upcoming 90 days Recent Visits No visits were found meeting these conditions. Showing recent visits within past 365 days and meeting all other requirements Future Appointments Date Type Provider Dept 09/22/24 Appointment Betty Lao PAC [facility] Showing future appointments within next 90 days and meeting all other requirements documented in this encounter Plan of Treatment Not on file documented as of this encounter Visit Diagnoses Diagnosis Vitamin D deficiency Unspecified vitamin D deficiency documented in this encounter Additional Health Concerns Assessment Noted Time PHQ-9 Depression Total Score: 0 03/05/20 23 12:57 PM CDT documented as of this encounter Care Teams Cement Worker Relationship Specialty Start Date End Date Betty Lao PAC [address] [place] [address] PCP - General Physician Sales And Marketing Analyst 05/15/21 Isabella Serna MD Psychiatry 08/28/16 documented as of this encounter
--- OUTSIDE RECORDS SUMMARY | 2025-03-05 18:02 | XMS_ITS | Encounter Summary ---
Author Organization [facility] Address [address] [place] [address] Phone Care Team Providers Care Operator Control Room Name Role Phone Isabella Serna MD Unavailable [phone] Betty Lao Primary Care Provider + Reason for Visit * Reason Comments Medication Refill Encounter Details Date Type Department Care Team (Late st Contact Info) Description 10/07/2023 Refill [facility] - [facility] Medicine [facility] [address] [place] [phone] Betty Lao PAC [address] [place] [address] Medication Refill Social History Tobacco Use Types [...] encounter Miscellaneous Notes * Telephone Encounter - Jana Johansen RN - 10/07/2023 3:25 PM CDT Last Vit D level was 12 ng/mL on 03-05-23 Do you want to fill or have pt get Vit D lab drawn? Per nursing clinical judgement, provider to review and approve the medication(s) order(s) if appropriate. Requested Prescriptions Pending Prescriptions Disp Refills ergocalciferol (VITAMIN D) 59355 UNIT Capsule [Pharmacy Med Name: VITAMIN D2 1.25MG(50,000 UNIT)] 12 Capsule 1 Sig: TAKE 1 CAPSULE BY MOUTH ONCE A WEEK Vitamin Supplements (Adult) Protocol Passed - 10/07/2023 3:22 PM Passed - Visit with relevant provider in past 12 months or upcoming 90 days Recent Visits Date Type Provider Dept 03/05/23 Office Visit Betty Lao PAC [facility] Showing recent visits within past 365 days and meeting all other requirements Future Appointments No visits were found meeting these conditions. Showing future appointments within next 90 days and meeting all other requirements Passed - Vitamin D dose not greater than 1.25mg documented in this encounter Plan of Treatment Not on file documented as of this encounter Visit Diagnoses Diagnosis Vitamin D deficiency Unspecified vitamin D deficiency documented in this encounter Additional Health Concerns Assessment Noted Time PHQ-9 Depression Total Score: 0 03/05/20 12:57 PM CDT documented as of this encounter Care Teams Operator Control Room Relationship Specialty Start Date End Date Betty Lao PAC [address] [place] [address] PCP - General Physician Cold Roll Inspector 05/15/21 Isabella Serna MD Psychiatry 08/28/16 documented as of this encounter
--- OUTSIDE RECORDS SUMMARY | 2025-03-05 18:02 | XMS_ITS | Encounter Summary ---
Author Organization [facility] Address [address] [place] [address] Phone Care Team Providers Care Tripe Cooker Name Role Phone Isabella Serna MD Unavailable [phone] Betyt Lao Primary Care Provider + Reason for Visit * Reason Comments Medication Refill Encounter Details Date Type Department Care Team (Late st Contact Info) Description 12/11/2022 Refill [facility] - Family Medicine - [place] [address] [place] [id number] Betty Lao PAC [address] [place] [address] Medication Refill Social History Tobacco Use Types Packs/Day Years Used Date Smoking Tobacco: Every Day Cigarettes Smokeless Tobacco: Never Alcohol Use Standard Drinks/Week Comments No 0 (1 standard drink = 0.6 oz pur e alcohol) Sexually Active Control Partners Comments Never Comments No Sex and Gender Information Value Date Recorded Sex Assigned at Not on file Legal Sex Female 7:34 PM CDT Gender Identity Not on file Sexual Orientation Not on file documented as of this encounter Miscellaneous Notes * Telephone Encounter - Libia Villavicencio RN - 12/11/2022 1:25 PM CDT Needs appointment - last appt more than 1 year ago - cancellations and a No Show since last appt. documented in this encounter Plan of Treatment Not on file documented as of this encounter Visit Diagnoses Diagnosis Moderate persistent asthma, unspecified whether complicated documented in this encounter Additional Health Concerns Assessment Noted Time PHQ-9 Depression Total Score: 0 09/30/19 18 2:00 PM CDT documented as of this encounter Care Teams Tripe Cooker Relationship Specialty Start Date End Date Betty Lao PAC [address] [place] [address] PCP - General Physician Pe Manager 05/15/21 Isabella Serna MD Psychiatry 08/28/16 documented as of this encounter
[2025-03-05 18:05] VITALS: BP 124/62; PULSE 104; RESP 18; TEMP 36.9; O2SAT 100
--- NOTE | 2025-03-05 21:21 | PC.NURSE ---
called for bloodwork from waiting room, no answer
--- NOTE | 2025-03-05 21:52 | PC.NURSE ---
called pt from waiting room, no answer
--- OUTSIDE RECORDS SUMMARY | 2025-03-05 22:18 | XMS_ITS | Encounter Summary ---
Author Organization [facility] Address [address] [place] [address] Phone Care Team Providers Care Tooler Name Role Phone Isabella Serna MD Unavailable [phone] Betty Lao Primary Care Provider + Reason for Visit * Reason Comments Medication Refill Encounter Details Date Type Department Care Team (Late st Contact Info) Description 10/07/2023 Refill [facility] - Family Medicine [facility] [address] [place] [phone] Betty Lao PAC [address] [place] [address] Medication Refill Social History Tobacco Use Types [...] Pending Prescriptions Disp Refills ergocalciferol (VITAMIN D) 93351 UNIT Capsule [Pharmacy Med Name: VITAMIN D2 1.25MG(50,000 UNIT)] 12 Capsule 1 Sig: TAKE 1 CAPSULE BY MOUTH ONCE A WEEK Vitamin Supplements (Adult) Protocol Passed - 10/07/2023 3:22 PM Passed - Visit with relevant provider in past 12 months or upcoming 90 days Recent Visits Date Type Provider Dept 03/05/23 Office Visit Betty Lao PAC [facility] Showing recent visits within past 365 days [...] documented as of this encounter Care Teams Tooler Relationship Specialty Start Date End Date Betty Lao PAC [address] [place] [address] PCP - General Physician Hat Liner 05/15/21 Isabella Serna MD Psychiatry 08/28/16 documented as of this encounter
--- OUTSIDE RECORDS SUMMARY | 2025-03-05 22:18 | XMS_ITS | Encounter Summary ---
Author Organization [facility] Address [address] [place] [address] Phone Care Team Providers Care Form Building Supervisor Name Role Phone Isabella Serna MD Unavailable [phone] Betty Lao Primary Care Provider + Reason for Visit * Reason Comments Medication Refill Encounter Details Date Type Department Care Team (Late st Contact Info) Description 12/11/2022 Refill [facility] - Family Medicine - [facility] [address] [place] [phone] Betty Lao PAC [address] [place] [address] Medication Refill Social History Tobacco Use Types [...] documented as of this encounter Care Teams Form Building Supervisor Relationship Specialty Start Date End Date Betty Lao PAC [address] [place] [address] PCP - General Physician Highway Maintenance Supervisor 05/15/21 Isabella Serna MD Psychiatry 08/28/16 documented as of this encounter
--- OUTSIDE RECORDS SUMMARY | 2025-03-05 22:18 | XMS_ITS | Encounter Summary ---
Author Organization [facility] Address [address] [place] [address] Phone Care Team Providers Care Diaper Folder Name Role Phone Isabella Serna MD Unavailable [phone] Betty Lao Primary Care Provider + Reason for Visit * Reason Comments Medication Refill Encounter Details Date Type Department Care Team (Late st Contact Info) Description 09/16/2024 Refill [facility] - [facility] [address] [place] [phone] Betty Lao PAC [address] [place] [address] Medication Refill Social History Tobacco Use Types [...] Pending Prescriptions Disp Refills ergocalciferol (VITAMIN D) 14182 UNIT Capsule [Pharmacy Med Name: VITAMIN D2 [...] Provider Dept 09/22/24 Appointment Betty Lao PAC [facility] Showing future appointments within next 90 days [...] documented as of this encounter Care Teams Diaper Folder Relationship Specialty Start Date End Date Betty Lao PAC [address] [place] [address] PCP - General Physician Small Package And Bundle Sorter Clerk 05/15/21 Isabella Serna MD Psychiatry 08/28/16 documented as of this encounter
== END 2025-03-05 21:52 | disposition left against medical advice (07) ==
LOC: ANHED 22:16
DX: R21 Rash and other nonspecific skin eruption (principal)
CPT/HCPCS: 99199

== ENCOUNTER 2025-03-28 14:16 | Emergency (ER) | payer OTHER, SELFPAY ==
--- OUTSIDE RECORDS SUMMARY | 2025-03-27 07:00 | XMS_ITS ---
Author Organization [facility] Address [address] [place] [address] Care Team Providers Care Botanical Technical Officer Name Role Phone Becka Biswas Primary Care Provider Allergies No Known Allergies REASON FOR VISIT Injection Medications Medication SIG (Take, Route, Frequency, Duration) Notes Start Date End Date Status Haloperidol Decanoate 100 MG/ML 2 ML (200mg total) into the muscle every 28 days Intramuscular every 28 days Acti ve Thiamine Active Ferrous Gluconate 324 (38 Fe) MG 1 tablet Orally twice a day Active traZODone HCl 50 MG 1 tablet at bedtime as needed Orally Once a day; Duration: 15 days 03/15/2025 Active Haloperidol 10 MG 1 tablet Orally twice a day Active Propranolol HCl 10 MG 1 tablet on an empty stomach Orally 3 times a day; Duration: 15 days As needed 03/07/2025 Active Social History Sex Assigned At : Social History Observation Description Sex Assigned At Female Vital Signs Weight 182.6 lbs lbs 03/27/2025 Height 66 in 03/27/2025 BMI 29.47 kg/m2 03/27/2025 Blood pressure systolic 100 mm Hg 03/27/20 25 Blood pressure diastolic 60 mm Hg 025 Heart Rate 89 /min 03/27/2025 Oximetry 98 % 03/27/2025 Temperature 98.0 degrees Fahrenheit 03/27/20 25 Respiratory Rate 18 /min 03/27/2025 Encounters Encounter Location Date Provider Diagnosis [facility] [address] [place] [address] 03/27/2025 Becka Biswas Schizophrenia F20.9 Assessments Encounter Date Diagnosis (ICD Code) Assessment Notes Treatment Notes Treatment Clinical Notes Section Notes 03/27/2025 Schizophrenia (ICD-10 - F20.9) Plan Of Treatment Next Appt Details Provider Name:Becka Biswas, 04/24/2025 01:00:00 PM, [address], [place], [address], Medications Administered Medication Instructions Date of Administration Dosage Notes Haldol Decanoate 03/27/2025 200 mg Raine Perez 03/27/2025 01:15 PM DATA ASSISTANT >Given IM RMD, tolerated well. [facility]# [id number]. Progress Notes * Elsy CLARKDOB: [birth year] (40 yo F)Acc No.[id number]:03/27/2025 UNLOCKED PROGRESS NOTE Progress Note Patient: Ezra ADAIRylee Juan Provider: Luisana Biswas APN :1985 A ge:40 Y S ex:Female Date:03/27/2025 Address:[facility] [address], [place], [place] Check In:12:51 PM DATA ASSISTANT Subjective: * Chief Complaints: * 1 . Injection. * Medical History: S chizophrenia, Paranoid personality disorder. * Hospitalization/Major Diagno stic Procedure: bernadette fleming 02/2025. * Medications: T aking Propranolol HCl 10 MG Tablet 1 tablet on an empty stomach Orally 3 times a day As needed, Taking traZODone HCl 50 MG Tablet 1 tablet at bedtime as needed Orally Once a day , Taking Haloperidol 10 MG Tablet 1 tablet Orally twice a day , Taking Thiamine , Taking Ferrous Gluconate 324 (38 Fe) MG Tablet 1 tablet Orally twice a day , Taking Haloperidol Decanoate 100 MG/ML Solution 2 ML (200mg total) into the muscle every 28 days Intramuscular every 28 days * Allergies: N .K.D.A. Objective: * Vitals: I nitials: mdn, Wt:182.6 lbs, Ht: 66, BMI:29.47, BP:100/60, HR:89, Oxygen sat %:98, Temp:98.0, RR:18. Assessment: * Assessment: 1. S ana liliaia - F20.9 (Primary) Plan: * Treatment: * Therapeutic Injections: Haldol decanoate : 200 mg (Dose No:1) (Route: Intramuscular) given by JAYJAY Randolph on right deltoid (Schizophrenia) * Procedure Codes: 9 6372 THER/PROPH/DIAG INJ, SC/IM * * Electronic signature of Leodan Biswas on 03/29/2025 at 01:51 PM DATA ASSISTANT Sign off status: Pending * Provider: Luisana Biswas APN Date: 05/27/2024 Generated for Milind Patel/Mateusz on: 05/29/2024 01:51 PM DATA ASSISTANT
[2025-03-28 14:20] VITALS: BP 130/70; PULSE 96; RESP 18; TEMP 36.2; O2SAT 100
--- NOTE | 2025-03-28 16:12 | ED.GENADULT ---
HPI - General Adult General Chief complaint: Unspecified Stated complaint: burning up Time Seen by Provider: 03/28/25 16:12 Focused HPI: 40 year old female presenting with generalized malaise. Patient states she previously had leukemia and was treated here and believes she has it again. Symptoms started about a week ago including subjective fevers/chills, nausea/vomiting, exhaustion, and dizziness. GENERAL: ill-appearing, and in no acute distress. HEAD: Normocephalic, atraumatic. CHEST: Clear to auscultation. ?No respiratory distress. HEART: Regular rate and rhythm.? NEURO: ?Alert and oriented x3. Patient screened in triage and initial orders placed.? ?Additional care and disposition to be based upon?diagnostic testing and treatment. Related Data Home Medications ?Medication ?Instructions ?Recorded ?Confirmed ?Last Taken ?Type haloperidol 10 mg tablet 10 mg PO BID 03/01/25 03/01/25 Unknown History Allergies Allergy/AdvReac Type Severity Reaction Status Date / Time bee venom protein (honey Allergy Unknown Verified 03/01/25 03:03 bee) (bees) [facility] Family History Family History (Updated 03/01/25 @ 03:00 by Betty Vasquez RN) Other Unknown family medical history Social History Social History Smoking packs per day: 1 Smoking cigarettes per day: 20.0 Tobacco type: cigarettes Alcohol intake: never Substance use: never Substance use type: does not use Lack of Transportation: YES Lack of Food: Never True Current Housing: I Have Housing Concerned About Future Housing: No Difficulty Paying Gas/Electric Bills: No Difficulty Paying for Meds: No Currently Unemployed: No Education: High School Diploma/GED Difficulty w/ Childcare or Family Care: No Spiritual care concerns: No Course Vital Signs Vital signs: Vital Signs Temperature 97.1 F L 03/28/25 14:20 Pulse Rate 96 03/28/25 14:20 Respiratory Rate 18 03/28/25 14:20 Blood Pressure 130/70 03/28/25 14:20 Pulse Oximetry 100 03/28/25 14:20 Temperature 97.1 F L 03/28/25 14:20 Pulse Rate 96 03/28/25 14:20 Respiratory Rate 18 03/28/25 14:20 Blood Pressure 130/70 03/28/25 14:20 Pulse Oximetry 100 03/28/25 14:20 Medical Decision Making Vital Signs Vital Signs: Vital Signs Temperature 97.1 F L 03/28/25 14:20 Pulse Rate 96 03/28/25 14:20 Respiratory Rate 18 03/28/25 14:20 Blood Pressure 130/70 03/28/25 14:20 Pulse Oximetry 100 03/28/25 14:20 Temperature 97.1 F L 03/28/25 14:20 Pulse Rate 96 03/28/25 14:20 Respiratory Rate 18 03/28/25 14:20 Blood Pressure 130/70 03/28/25 14:20 Pulse Oximetry 100 03/28/25 14:20 Discharge Plan Discharge Patient Language: Argentine Prescriptions: No Action haloperidol 10 mg tablet 10 mg PO BID Follow-up/Referrals: UNKNOWN,DOCTOR [Primary Care Provider]
--- NOTE | 2025-03-28 16:49 | ED_ITS ---
HPI - General Adult General Chief complaint: Unspecified <MARI Garay - Last Filed: 03/28/25 16:51> Stated complaint: burning up <MARI Garay - Last Filed: 03/28/25 16:51> Time Seen by Provider: 03/28/25 16:12 <MARI Garay - Last Filed: 03/28/25 16:51> Focused HPI: 40 old female presenting with generalized malaise. Patient states she previously was diagnosed with leukemia and was treated here at [facility]. She endorses that she believes she has it again. Symptoms started about a week ago including subjective fevers/chills, nausea/vomiting, exhaustion, and dizziness. GENERAL: ill-appearing, well-nourished, and in no acute distress. HEAD: Normocephalic, atraumatic. CHEST: Clear to auscultation. ?No respiratory distress. HEART: Regular rate and rhythm.? NEURO: ?Alert and oriented x3. Patient screened in triage and initial orders placed.? ?Additional care and disposition to be based upon?diagnostic testing and treatment. <MARI Garay - Last Filed: 03/28/25 16:51> Focused HPI: 40 old female presenting with generalized malaise. Patient states she previously was diagnosed with leukemia and was treated here at [facility]. She endorses that she believes she has it again. Symptoms started about a week ago including subjective fevers/chills, nausea/vomiting, exhaustion, and dizziness. GENERAL: Ill-appearing, well-nourished, and in no acute distress. HEAD: Normocephalic, atraumatic. CHEST: Clear to auscultation. ?No respiratory distress. HEART: Regular rate and rhythm.? NEURO: ?Alert and oriented x3. Patient screened in triage and initial orders placed.? ?Additional care and disposition to be based upon?diagnostic testing and treatment. <Kalli Griffiths APRN - Last Filed: 03/29/25 02:10> History of Present Illness HPI narrative: I agree with the above HPI. <Kalli Griffiths APRN - Last Filed: 03/29/25 02:10> Related Data Home medications: Home Medications ?Medication ?Instructions ?Recorded ?Confirmed ?Last Taken ?Type haloperidol 10 mg tablet 10 mg PO BID 03/01/25 Unknown History <MARI Garay - Last Filed: 03/28/25 16:51> Allergies/adverse reactions: Allergies Allergy/AdvReac Type Severity Reaction Status Date / Time bee venom protein (honey Allergy Unknown Verified 03/01/25 03:03 bee) (bees) <MARI Garay - Last Filed: 03/28/25 16:51> Review of Systems 2 Review of Systems: All systems reviewed & are unremarkable except as noted in HPI and below <Kalli Griffiths APRN - Last Filed: 03/29/25 02:10> PMFSH Family History Family History: Family History Other Unknown family medical history <MARI Garay - Last Filed: 03/28/25 16:51> Social History Social History: Social History Smoking packs per day: 1 Smoking cigarettes per day: 20.0 Tobacco type: cigarettes Alcohol intake: never Substance use: never Substance use type: does not use Lack of Transportation: YES Lack of Food: Never True Current Housing: I Have Housing Concerned About Future Housing: No Difficulty Paying Gas/Electric Bills: No Difficulty Paying for Meds: No Currently Unemployed: No Education: High School Diploma/GED Difficulty w/ Childcare or Family Care: No Spiritual care concerns: No <MARI Garay - Last Filed: 03/28/25 16:51> Exam 2 Narrative: GENERAL: Ill appearing, well-nourished, non-toxic, in no acute distress. HEAD: Normocephalic, atraumatic. NECK: Supple. No adenopathy, no masses. RESPIRATORY: Airway patent, respirations nonlabored. Clear to auscultation bilaterally, no rales, rhonchi, wheezing. CARDIOVASCULAR: Regular rate and rhythm without murmurs, rubs, or gallops. Peripheral pulses 2+ and equal bilaterally. ABDOMINAL: Soft, nontender, nondistended, no hepatosplenomegaly. Normoactive BS. MUSCULOSKELETAL: Moves all extremities. Strength/ROM intact without gross deformities. SKIN: Warm, dry, normal color. No rashes. NEURO: A&O X3. Speech clear. Cranial nerves II-XII intact. No ataxic movements. PSYCHIATRIC: Appropriate mood and affect. Normal interaction. <Kalli Griffiths, EUGENIE - Last Filed: 03/29/25 02:10> Course Vital Signs Vital signs: Vital Signs Temperature 36.2 C L 03/28/25 14:20 Pulse Rate 96 03/28/25 14:20 Respiratory Rate 18 03/28/25 14:20 Blood Pressure 130/70 03/28/25 14:20 Pulse Oximetry 100 03/28/25 14:20 Temperature 36.2 C L 03/28/25 14:20 Pulse Rate 93 03/28/25 19:19 Respiratory Rate 18 03/28/25 19:19 Blood Pressure 117/62 03/28/25 19:19 Pulse Oximetry 100 03/28/25 19:19 Oxygen Delivery Room Air 03/28/25 16:55 <MARI Garay - Last Filed: 03/28/25 16:51> Vital Signs Temperature 36.2 C L 03/28/25 14:20 Pulse Rate 96 03/28/25 14:20 Respiratory Rate 18 03/28/25 14:20 Blood Pressure 130/70 03/28/25 14:20 Pulse Oximetry 100 03/28/25 14:20 Temperature 36.2 C L 03/28/25 14:20 Pulse Rate 93 03/28/25 19:19 Respiratory Rate 18 03/28/25 19:19 Blood Pressure 117/62 03/28/25 19:19 Pulse Oximetry 100 03/28/25 19:19 Oxygen Delivery Room Air 03/28/25 16:55 <Kalli Griffiths, VOLUNTEER FIREFIGHTER - Last Filed: 03/29/25 02:10> Medical Decision Making MDM Narrative Medical decision making narrative: 40 year old female presenting with generalized malaise. Patient states she previously was diagnosed with leukemia and was treated here at [facility]. She endorses that she believes she has it again. Symptoms started about a week ago including subjective fevers/chills, nausea/vomiting, exhaustion, and dizziness. Upon time of reexamination patient reports she has had to move positions every 15 minutes and feels as though she has to maurer for relief. FIREWORKS INSPECTOR told pt it sounds like she's having a manic episode and asked if she has a history of bipolar disorder. Pt reports she does and she's feeling a lot of anxiety. She also reports, I'd like to go back to [place] where she last received mental health treatment. Plan to have pt evaluated by mental health intake. Labs Ordered: CBC, CMP, UA, UDS, ethanol, salicylate, TSH, Tylenol Imaging Ordered: None necessary Medications Ordered: Ativan 1 mg p.o., Macrobid 100 mg p.o. Results: Patient's chemistry indicates a sodium of 132, carbon dioxide of 21, creatinine is 0.56. Her urinalysis indicates she has a UTI. Patient's drug screen was negative for any illicit drugs. Diagnosis: Manic episode, acute anxiety Risks: HEART score, PECARN score, CURB-65 score Consults: 1845-patient is medically cleared for psychiatric intake. MDM: Psychiatric intake came to assess patient and agreed with plan for admission to psychiatric hospital. Patient is a voluntary admission. They will look for placement for patient at an outside facility. Patient verbalized understanding and is in agreement with plan. 0200- Pt received a psychiatric bed at [facility] and will be transferred there by EMS. <Kalli Griffiths, EUGENIE - Last Filed: 03/29/25 02:10> Differential Diagnosis Differential Diagnosis: Suicidal ideation, anxiety, bipolar disorder, manic episode <Kalli Griffiths APRN - Last Filed: 03/29/25 02:10> Vital Signs Vital Signs: Vital Signs Temperature 36.2 C L 03/28/25 14:20 Pulse Rate 96 03/28/25 14:20 Respiratory Rate 18 03/28/25 14:20 Blood Pressure 130/70 03/28/25 14:20 Pulse Oximetry 100 03/28/25 14:20 Temperature 36.2 C L 03/28/25 14:20 Pulse Rate 93 03/28/25 19:19 Respiratory Rate 18 03/28/25 19:19 Blood Pressure 117/62 03/28/25 19:19 Pulse Oximetry 100 03/28/25 19:19 Oxygen Delivery Room Air 03/28/25 16:55 <MARI Garay - Last Filed: 03/28/25 16:51> Vital Signs Temperature 36.2 C L 03/28/25 14:20 Pulse Rate 96 03/28/25 14:20 Respiratory Rate 18 03/28/25 14:20 Blood Pressure 130/70 03/28/25 14:20 Pulse Oximetry 100 03/28/25 14:20 Temperature 36.2 C L 03/28/25 14:20 Pulse Rate 93 03/28/25 19:19 Respiratory Rate 18 03/28/25 19:19 Blood Pressure 117/62 03/28/25 19:19 Pulse Oximetry 100 03/28/25 19:19 Oxygen Delivery Room Air 03/28/25 16:55 <Kalli Griffiths APRN - Last Filed: 03/29/25 02:10> Lab Data Lab results reviewed: Yes I reviewed the patient's lab results. <Kalli Griffiths APRN - Last Filed: 03/29/25 02:10> Result diagrams: 03/28/25 17:45 03/28/25 17:45 <MARI Garay - Last Filed: 03/28/25 16:51> Labs: Lab Results 03/28/25 03/28/25 03/28/25 Range/Units 17:13 17:19 17:45 WBC 11.0 H (4.5-10.0) K/mm3 RBC 4.70 (4.2-5.4) M/mm3 Hgb 11.1 L D (12.0-15.0) g/dL Hct 36.9 L (37.0-47.0) % MCV 78.5 L (80-100) fl MCH 23.6 L (26-34) pg MCHC 30.1 L (32-36) g/dl RDW 22.6 H (11.5-14.5) % Plt Count 298 (150-375) k/mm3 MPV 12.0 H (7.4-10.4) fl Immature Gran % (Auto) 0.3 (0-0.5) % Neut % (Auto) 74.1 H (45.5-73.1) % Lymph % (Auto) 18.5 (18.3-44.2) % [place] % (Auto) 5.1 (2.6-8.5) % Eos % (Auto) 1.5 (0-4.4) % Baso % (Auto) 0.5 (0.2-1.2) % Lymph # (Auto) 2.04 (0.9-3.2) K/mm3 [place] # (Auto) 0.6 (0.1-0.6) K/mm3 Eos # (Auto) 0.2 (0-0.3) K/mm3 Baso # (Auto) 0.1 (0.0-0.1) K/mm3 Abs Immat Gran (auto) 0.03 (0.00-0.031) K/mm3 Absolute Neuts (auto) 8.2 H (1.3-6.7) K/mm3 Absolute Nucleated RBC 0.000 (0.0-0.012) K/mm3 Band Neutrophils % 0 (0-6) % Nucleated RBC % 0.0 (0.0-0.2) % Platelet Estimate Adequate (Adequate) % Immature Plt Fraction 6.3 (0.9-11.2) % Hypochromasia 1+ Anisocytosis 3+ Schistocytes None seen Sodium 132 L (137-145) mmol/L Potassium 4.0 (3.4-5.0) mmol/L Chloride 104 (98-107) mmol/L Carbon Dioxide 21 L (22-30) mmol/L Anion Gap 7 (4-12) mmol/L BUN 7 (7-17) mg/dL Creatinine 0.56 L (0.7-1.0) mg/dL Estim Creat Clear Calc 120 ml/min Estimated GFR > 60 (59 - ) Glucose 93 (65-110) mg/dL Calcium 8.8 (8.4-10.2) mg/dL Total Bilirubin 0.4 (0.2-1.3) mg/dL AST 18 (14-36) U/L ALT 11 (6-35) U/L Alkaline Phosphatase 62 (38-126) U/L Total Protein 7.4 (6.3-8.2) g/dL Albumin 4.1 (3.5-5.1) g/dL TSH 0.466 (0.465-4.680) uIU/mL Urine Color Yellow (Yellow) Urine Appearance Cloudy H (Clear) Urine pH 5.5 (5.0-9.0) Ur Specific [place] 1.020 (1.001-1.035) Urine Protein Trace (Negative) mg/dL Urine Glucose (UA) Negative (Negative) mg/dL Urine Ketones 1+ H (Negative) mg/dL Ur Blood (Man) Negative (Negative) Urine Nitrate Negative (Negative) Urine Bilirubin Negative (Negative) Urine Urobilinogen 1.0 (<2.0) mg/dL Add Ur Microanalysis Reviewed Leukocyte Esterase Rfl 1+ H (Negative) DENY/UL Urine RBC 6-10 H (0-2) /hpf Urine WBC 11-20 H (0-3) /hpf Ur Squamous Epith Cells Many H (Few) /hpf Urine Bacteria 4+ H /hpf Urine Casts 6-10 POC Urine HCG, Qual Negative (Negative) Salicylates (2-20) mg/dL Urine Opiates Screen Negative (Negative) Urine Methadone Screen Negative (Negative) Acetaminophen (10-30) ug/mL Ur Barbiturates Screen Negative (Negative) Ur Phencyclidine Scrn Negative (Negative) Ur Amphetamine Screen Negative (Negative) U Benzodiazepines Scrn Negative (Negative) Urine Cocaine Screen Negative (Negative) U Cannabinoids Screen Negative (Negative) Ethyl Alcohol (<10) mg/dL Influenza A (RT-PCR) (Negative) Influenza B (RT-PCR) (Negative) RSV (RT-PCR) (Negative) SARS-CoV-2 RNA (RT-PCR) (Negative) 03/28/25 03/28/25 Range/Units 17:45 18:23 WBC (4.5-10.0) K/mm3 RBC (4.2-5.4) M/mm3 Hgb (12.0-15.0) g/dL Hct (37.0-47.0) % MCV (80-100) fl MCH (26-34) pg MCHC (32-36) g/dl RDW (11.5-14.5) % Plt Count (150-375) k/mm3 MPV (7.4-10.4) fl Immature Gran % (Auto) (0-0.5) % Neut % (Auto) (45.5-73.1) % Lymph % (Auto) (18.3-44.2) % [place] % (Auto) (2.6-8.5) % Eos % (Auto) (0-4.4) % Baso % (Auto) (0.2-1.2) % Lymph # (Auto) (0.9-3.2) K/mm3 [place] # (Auto) (0.1-0.6) K/mm3 Eos # (Auto) (0-0.3) K/mm3 Baso # (Auto) (0.0-0.1) K/mm3 Abs Immat Gran (auto) (0.00-0.031) K/mm3 Absolute Neuts (auto) (1.3-6.7) K/mm3 Absolute Nucleated RBC (0.0-0.012) K/mm3 Band Neutrophils % (0-6) % Nucleated RBC % (0.0-0.2) % Platelet Estimate (Adequate) % Immature Plt Fraction (0.9-11.2) % Hypochromasia Anisocytosis Schistocytes Sodium (137-145) mmol/L Potassium (3.4-5.0) mmol/L Chloride (98-107) mmol/L Carbon Dioxide (22-30) mmol/L Anion Gap (4-12) mmol/L BUN (7-17) mg/dL Creatinine (0.7-1.0) mg/dL Estim Creat Clear Calc ml/min Estimated GFR (59 - ) Glucose (65-110) mg/dL Calcium (8.4-10.2) mg/dL Total Bilirubin (0.2-1.3) mg/dL AST (14-36) U/L ALT (6-35) U/L Alkaline Phosphatase (38-126) U/L Total Protein (6.3-8.2) g/dL Albumin (3.5-5.1) g/dL TSH Cancelled (0.465-4.680) uIU/mL Urine Color (Yellow) Urine Appearance (Clear) Urine pH (5.0-9.0) Ur Specific [place] (1.001-1.035) Urine Protein (Negative) mg/dL Urine Glucose (UA) (Negative) mg/dL Urine Ketones (Negative) mg/dL Ur Blood (Man) (Negative) Urine Nitrate (Negative) Urine Bilirubin (Negative) Urine Urobilinogen (<2.0) mg/dL Add Ur Microanalysis Leukocyte Esterase Rfl (Negative) DENY/UL Urine RBC (0-2) /hpf Urine WBC (0-3) /hpf Ur Squamous Epith Cells (Few) /hpf Urine Bacteria /hpf Urine Casts POC Urine HCG, Qual (Negative) Salicylates < 1.0 L (2-20) mg/dL Urine Opiates Screen (Negative) Urine Methadone Screen (Negative) Acetaminophen < 10 L (10-30) ug/mL Ur Barbiturates Screen (Negative) Ur Phencyclidine Scrn (Negative) Ur Amphetamine Screen (Negative) U Benzodiazepines Scrn (Negative) Urine Cocaine Screen (Negative) U Cannabinoids Screen (Negative) Ethyl Alcohol < 10 (<10) mg/dL Influenza A (RT-PCR) Negative (Negative) Influenza B (RT-PCR) Negative (Negative) RSV (RT-PCR) Negative (Negative) SARS-CoV-2 RNA (RT-PCR) Negative (Negative) <MARI Garay - Last Filed: 03/28/25 16:51> Lab Results 03/28/25 03/28/25 03/28/25 Range/Units 17:13 17:19 17:45 WBC 11.0 H (4.5-10.0) K/mm3 RBC 4.70 (4.2-5.4) M/mm3 Hgb 11.1 L D (12.0-15.0) g/dL Hct 36.9 L (37.0-47.0) % MCV 78.5 L (80-100) fl MCH 23.6 L (26-34) pg MCHC 30.1 L (32-36) g/dl RDW 22.6 H (11.5-14.5) % Plt Count 298 (150-375) k/mm3 MPV 12.0 H (7.4-10.4) fl Immature Gran % (Auto) 0.3 (0-0.5) % Neut % (Auto) 74.1 H (45.5-73.1) % Lymph % (Auto) 18.5 (18.3-44.2) % [place] % (Auto) 5.1 (2.6-8.5) % Eos % (Auto) 1.5 (0-4.4) % Baso % (Auto) 0.5 (0.2-1.2) % Lymph # (Auto) 2.04 (0.9-3.2) K/mm3 [place] # (Auto) 0.6 (0.1-0.6) K/mm3 Eos # (Auto) 0.2 (0-0.3) K/mm3 Baso # (Auto) 0.1 (0.0-0.1) K/mm3 Abs Immat Gran (auto) 0.03 (0.00-0.031) K/mm3 Absolute Neuts (auto) 8.2 H (1.3-6.7) K/mm3 Absolute Nucleated RBC 0.000 (0.0-0.012) K/mm3 Band Neutrophils % 0 (0-6) % Nucleated RBC % 0.0 (0.0-0.2) % Platelet Estimate Adequate (Adequate) % Immature Plt Fraction 6.3 (0.9-11.2) % Hypochromasia 1+ Anisocytosis 3+ Schistocytes None seen Sodium 132 L (137-145) mmol/L Potassium 4.0 (3.4-5.0) mmol/L Chloride 104 (98-107) mmol/L Carbon Dioxide 21 L (22-30) mmol/L Anion Gap 7 (4-12) mmol/L BUN 7 (7-17) mg/dL Creatinine 0.56 L (0.7-1.0) mg/dL Estim Creat Clear Calc 120 ml/min Estimated GFR > 60 (59 - ) Glucose 93 (65-110) mg/dL Calcium 8.8 (8.4-10.2) mg/dL Total Bilirubin 0.4 (0.2-1.3) mg/dL AST 18 (14-36) U/L ALT 11 (6-35) U/L Alkaline Phosphatase 62 (38-126) U/L Total Protein 7.4 (6.3-8.2) g/dL Albumin 4.1 (3.5-5.1) g/dL TSH 0.466 (0.465-4.680) uIU/mL Urine Color Yellow (Yellow) Urine Appearance Cloudy H (Clear) Urine pH 5.5 (5.0-9.0) Ur Specific [place] 1.020 (1.001-1.035) Urine Protein Trace (Negative) mg/dL Urine Glucose (UA) Negative (Negative) mg/dL Urine Ketones 1+ H (Negative) mg/dL Ur Blood (Man) Negative (Negative) Urine Nitrate Negative (Negative) Urine Bilirubin Negative (Negative) Urine Urobilinogen 1.0 (<2.0) mg/dL Add Ur Microanalysis Reviewed Leukocyte Esterase Rfl 1+ H (Negative) DENY/UL Urine RBC 6-10 H (0-2) /hpf Urine WBC 11-20 H (0-3) /hpf Ur Squamous Epith Cells Many H (Few) /hpf Urine Bacteria 4+ H /hpf Urine Casts 6-10 POC Urine HCG, Qual Negative (Negative) Salicylates (2-20) mg/dL Urine Opiates Screen Negative (Negative) Urine Methadone Screen Negative (Negative) Acetaminophen (10-30) ug/mL Ur Barbiturates Screen Negative (Negative) Ur Phencyclidine Scrn Negative (Negative) Ur Amphetamine Screen Negative (Negative) U Benzodiazepines Scrn Negative (Negative) Urine Cocaine Screen Negative (Negative) U Cannabinoids Screen Negative (Negative) Ethyl Alcohol (<10) mg/dL Influenza A (RT-PCR) (Negative) Influenza B (RT-PCR) (Negative) RSV (RT-PCR) (Negative) SARS-CoV-2 RNA (RT-PCR) (Negative) 03/28/25 03/28/25 Range/Units 17:45 18:23 WBC (4.5-10.0) K/mm3 RBC (4.2-5.4) M/mm3 Hgb (12.0-15.0) g/dL Hct (37.0-47.0) % MCV (80-100) fl MCH (26-34) pg MCHC (32-36) g/dl RDW (11.5-14.5) % Plt Count (150-375) k/mm3 MPV (7.4-10.4) fl Immature Gran % (Auto) (0-0.5) % Neut % (Auto) (45.5-73.1) % Lymph % (Auto) (18.3-44.2) % [place] % (Auto) (2.6-8.5) % Eos % (Auto) (0-4.4) % Baso % (Auto) (0.2-1.2) % Lymph # (Auto) (0.9-3.2) K/mm3 [place] # (Auto) (0.1-0.6) K/mm3 Eos # (Auto) (0-0.3) K/mm3 Baso # (Auto) (0.0-0.1) K/mm3 Abs Immat Gran (auto) (0.00-0.031) K/mm3 Absolute Neuts (auto) (1.3-6.7) K/mm3 Absolute Nucleated RBC (0.0-0.012) K/mm3 Band Neutrophils % (0-6) % Nucleated RBC % (0.0-0.2) % Platelet Estimate (Adequate) % Immature Plt Fraction (0.9-11.2) % Hypochromasia Anisocytosis Schistocytes Sodium (137-145) mmol/L Potassium (3.4-5.0) mmol/L Chloride (98-107) mmol/L Carbon Dioxide (22-30) mmol/L Anion Gap (4-12) mmol/L BUN (7-17) mg/dL Creatinine (0.7-1.0) mg/dL Estim Creat Clear Calc ml/min Estimated GFR (59 - ) Glucose (65-110) mg/dL Calcium (8.4-10.2) mg/dL Total Bilirubin (0.2-1.3) mg/dL AST (14-36) U/L ALT (6-35) U/L Alkaline Phosphatase (38-126) U/L Total Protein (6.3-8.2) g/dL Albumin (3.5-5.1) g/dL TSH Cancelled (0.465-4.680) uIU/mL Urine Color (Yellow) Urine Appearance (Clear) Urine pH (5.0-9.0) Ur Specific [place] (1.001-1.035) Urine Protein (Negative) mg/dL Urine Glucose (UA) (Negative) mg/dL Urine Ketones (Negative) mg/dL Ur Blood (Man) (Negative) Urine Nitrate (Negative) Urine Bilirubin (Negative) Urine Urobilinogen (<2.0) mg/dL Add Ur Microanalysis Leukocyte Esterase Rfl (Negative) DENY/UL Urine RBC (0-2) /hpf Urine WBC (0-3) /hpf Ur Squamous Epith Cells (Few) /hpf Urine Bacteria /hpf Urine Casts POC Urine HCG, Qual (Negative) Salicylates < 1.0 L (2-20) mg/dL Urine Opiates Screen (Negative) Urine Methadone Screen (Negative) Acetaminophen < 10 L (10-30) ug/mL Ur Barbiturates Screen (Negative) Ur Phencyclidine Scrn (Negative) Ur Amphetamine Screen (Negative) U Benzodiazepines Scrn (Negative) Urine Cocaine Screen (Negative) U Cannabinoids Screen (Negative) Ethyl Alcohol < 10 (<10) mg/dL Influenza A (RT-PCR) Negative (Negative) Influenza B (RT-PCR) Negative (Negative) RSV (RT-PCR) Negative (Negative) SARS-CoV-2 RNA (RT-PCR) Negative (Negative) <Kalli Griffiths APRN - Last Filed: 03/29/25 02:10> Discharge Plan Discharge Clinical Impression: Manic behavior, Anxiety, History of bipolar disorder Schizophrenia Qualifiers: Schizophrenia type: paranoid schizophrenia Qualified Code(s): F20.0 - Paranoid schizophrenia <MARI Garay - Last Filed: 03/28/25 16:51> Patient Disposition: Psychiatric Hosp <MARI Garay - Last Filed: 03/28/25 16:51> Condition: Stable <MARI Garay - Last Filed: 03/28/25 16:51> Patient Language: Cambodian <MARI Garay - Last Filed: 03/28/25 16:51> Prescriptions: No Action haloperidol 10 mg tablet 10 mg PO BID <MARI Garay - Last Filed: 03/28/25 16:51> Follow-up/Referrals: UNKNOWN,DOCTOR [Non-Staff] <MARI Garay - Last Filed: 03/28/25 16:51>
[2025-03-28 16:55] VITALS: BP 113/58; PULSE 91; RESP 18; O2SAT 99
[2025-03-28 17:21] LABS: BEDSIDEPREGUCG Negative (Negative)
[2025-03-28] MEDS: ONDANSETRON HCL ODT 4 MG TABLET PO (17:22)
[2025-03-28 17:35] LABS: Add Urine Microscopic? YES; Appearance Urine Cloudy (Clear); Glucose Urine UA Negative (Negative); Leukocyte Esterase Ur 1+ LEU/UL (Negative); Need Manual Microscopic Reviewed; Nitrate Urine Negative (Negative); Specific Grav Ur 1.020 (1.001-1.035)
[2025-03-28 17:57] LABS: Cannabinoid Screen Urine Negative (Negative)
[2025-03-28 17:59] LABS: Hematocrit 36.9 % (37.0-47.0); Hemoglobin 11.1 g/dL (12.0-15.0); Immature Granulocyte Percent A 0.3 % (0-0.5); Immature Platelet Fraction Pct 6.3 % (0.9-11.2); Lymphocytes Absolute Auto 2.04 K/mm3 (0.9-3.2); Mean Corpuscular HGB Conc 30.1 g/dl (32-36); Mean Corpuscular Hemoglobin 23.6 pg (26-34); Mean Corpuscular Volume 78.5 fl (80-100); Nucleated Red Blood Cells Absolute Auto 0.000 K/mm3 (0.0-0.012); Nucleated Red Blood Cells Perc 0.0 % (0.0-0.2); Platelet Count Result 298 k/mm3 (150-375); Red Blood Count 4.70 M/mm3 (4.2-5.4); White Blood Count 11.0 K/mm3 (4.5-10.0)
[2025-03-28 18:06] LABS: Alanine Aminotransferase 11 U/L (6-35); Albumin Level 4.1 g/dL (3.5-5.1); Alkaline Phosphatase 62 U/L (38-126); Anion Gap 7 mmol/L (4-12); Aspartate Amino Transferase 18 U/L (14-36); Bilirubin,Total 0.4 mg/dL (0.2-1.3); Blood Urea Nitrogen 7 mg/dL (7-17); Calcium 8.8 mg/dL (8.4-10.2); Carbon Dioxide 21 mmol/L (22-30); Chloride 104 mmol/L (98-107); Estimated CRCL calculation 120 ml/min; Estimated Glomerular Filt Rate > 60; Glucose 93 mg/dL (65-110); Potassium 4.0 mmol/L (3.4-5.0); Sodium 132 mmol/L (137-145); Total Protein 7.4 g/dL (6.3-8.2)
[2025-03-28 18:10] LABS: Acetaminophen < 10 ug/mL (10-30); Salicylate < 1.0 mg/dL (2-20)
[2025-03-28] MEDS: LORazepam (*CRX) 1 MG TABLET PO (18:13)
[2025-03-28] MEDS: NITROFURANTOIN MONOHYD MACROCR 100 MG CAP PO (18:13)
[2025-03-28 18:21] LABS: Band Neutrophils Percent 0 % (0-6); Schistocytes None Seen
[2025-03-28 18:22] LABS: Hypochromasia 1+
[2025-03-28 18:23] LABS: Anisocytosis 3+
[2025-03-28 18:37] LABS: Thyroid Stimulating Hormone 0.466 uIU/mL (0.465-4.680)
[2025-03-28 19:03] LABS: Influenza A QL RT-PCR Negative (Negative); Influenza B QL RT-PCR Negative (Negative); RSV RNA, RT-PCR Negative (Negative); SARS-CoV-2 RNA PCR Negative (Negative)
[2025-03-28 19:19] VITALS: BP 117/62; PULSE 93; RESP 18; O2SAT 100
--- NOTE | 2025-03-28 19:35 | PC.NURSE ---
Received report from HAYDEN Salmon for cont. of care. Pt lying on stretcher respirations even and unlabored.. Pt denies any pain and/or discomfort at this time. Pt provided with green scrubs and a sandwich.
--- NOTE | 2025-03-28 22:35 | PC.NURSE ---
Crisis at bedside
--- NOTE | 2025-03-28 23:40 | PC.NURSE ---
Spoke to HAYDEN Evans from [facility] for possible placement, awaiting acceptance.
[2025-03-29 04:35] VITALS: BP 124/70; PULSE 97; RESP 16; TEMP 36.6; O2SAT 98
--- OUTSIDE RECORDS SUMMARY | 2025-03-29 13:51 | XMS_ITS | Encounter Summary ---
Author Organization [facility] Address [address] [place] [address] Phone Care Team Providers Care Test Rider Name Role Phone Isabella Serna MD Unavailable [phone] Betty Lao Primary Care Provider + Reason for Visit * Reason Comments Medication Refill Encounter Details Date Type Department Care Team (Late st Contact Info) Description 09/16/2024 Refill [facility] - Family Medicine [facility] [address] [place] [address] Betty Lao PAC [address] [place] [address] Medication Refill Social History Tobacco Use Types [...] Pending Prescriptions Disp Refills ergocalciferol (VITAMIN D) 43593 UNIT Capsule [Pharmacy Med Name: VITAMIN D2 [...] Provider Dept 09/22/24 Appointment Betty Lao PAC [facility] Showing future appointments within next 90 days and meeting all other requirements documented in this encounter Plan of Treatment Not on file documented as of this encounter Visit Diagnoses Diagnosis Vitamin D deficiency Unspecified vitamin D deficiency documented in this encounter Additional Health Concerns Infection Onset Date Last Indicated Resolved Time Respiratory Rule-Out 03/11/2025 03/11/2025 025 9:49 AM CDT Assessment Noted Time PHQ-9 Depression Total Score: 0 03/05/20 23 12:57 PM CDT documented as of this encounter Care Teams Test Rider Relationship Specialty Start Date End Date Betty Lao PAC [address] [place] [address] PCP - General Physician Knobber 05/15/21 Isabella Serna MD Psychiatry 08/28/16 documented as of this encounter
--- OUTSIDE RECORDS SUMMARY | 2025-03-29 13:51 | XMS_ITS | Encounter Summary ---
Author Organization [facility] Address [address] [place] [address] Phone Care Team Providers Care Social Worker Palliative Care Name Role Phone Isabella Serna MD Unavailable [phone] Betty Lao Primary Care Provider + Reason for Visit * Reason Comments Medication Refill Encounter Details Date Type Department Care Team (Late st Contact Info) Description 12/11/2022 Refill [facility] - [facility] Medicine [facility] [address] [place] [address] Betty Lao PAC [address] [place] [address] Medication Refill Social History Tobacco Use Types [...] documented as of this encounter Care Teams Social Worker Palliative Care Relationship Specialty Start Date End Date Betty Lao PAC [address] [place] [address] PCP - General Physician Test Developer 05/15/21 Isabella Serna MD Psychiatry 08/28/16 documented as of this encounter
--- OUTSIDE RECORDS SUMMARY | 2025-03-29 13:51 | XMS_ITS | Encounter Summary ---
Author Organization [facility] Address [address] [place] [address] Phone Care Team Providers Care Blasting Miner Name Role Phone Isabella Serna MD Unavailable [phone] Betty Lao Primary Care Provider + Reason for Visit * Reason Comments Medication Refill Encounter Details Date Type Department Care Team (Late st Contact Info) Description 10/07/2023 Refill [facility] - [facility] [address] [place] [address] Betty Lao PAC [address] [place] [address] Medication Refill Social History Tobacco Use Types [...] Pending Prescriptions Disp Refills ergocalciferol (VITAMIN D) 14425 UNIT Capsule [Pharmacy Med Name: VITAMIN D2 1.25MG(50,000 UNIT)] 12 Capsule 1 Sig: TAKE 1 CAPSULE BY MOUTH ONCE A WEEK Vitamin Supplements (Adult) Protocol Passed - 10/07/2023 3:22 PM Passed - Visit with relevant provider in past 12 months or upcoming 90 days Recent Visits Date Type Provider Dept 03/05/23 Office Visit Betty Lao [facility] Showing recent visits within past 365 days [...] documented as of this encounter Care Teams Blasting Miner Relationship Specialty Start Date End Date Betty Lao PAC [address] [place] [address] PCP - General Physician Behavioral Health Technician 05/15/21 Isabella Serna MD Psychiatry 08/28/16 documented as of this encounter
--- OUTSIDE RECORDS SUMMARY | 2025-03-29 13:51 | XMS_ITS | Clinical Summary ---
Author Organization [facility] Address [address] [place] [address] Phone Care Team Providers Care Drapery Maker Name Role Phone Isabella Serna MD Unavailable [phone] Betty Lao Primary Care Provider + Allergies No known active allergies Medications Paliperidone 3 MG TABLET SR 24 HR 0 8 Active Respiratory Therapy Supplies (NEBULIZER) Device Use as directed 1 Each 8 Active benztropine (COGENTIN) 2 MG Tablet 9 Active albuterol 108 (90 Base) MCG/ACT Aerosol Solution take 2 Puffs by inhalation every 4 hours as needed for Wheezing or Cough (shortness of breath). 18 g 1 1 Active Breo Ellipta 100-25 MCG/ACT AEROSOL POWDER, BREATH ACTIVATEDIndicat ions:Moderate persistent asthma, unspecified whether complicated INHALE 1 PUFF EVERY DAY 60 Each 5 3 Active hydrOXYzine (VISTARIL) 25 MG Capsule 3 Active OLANZapine (ZYPREXA) 10 MG Tablet TAKE 1 TABLET BY MOUTH EVERYDAY AT BEDTIME 3 Active ergocalciferol (VITAMIN D) 93606 UNIT CapsuleIndicatio ns:Vitamin D deficiency TAKE 1 CAPSULE BY MOUTH ONCE A WEEK 12 Capsule 4 Active Active Problems Problem Noted Date Diagnosed Date Schizoaffective disorder 07/21/2016 Encounters Date Type Department Care Team Description 03/11/2025 8:48 AM CDT - 03/11/2025 11:02 AM CDT Emergency [facility] Emergency [address] [facility] [place] [address] Ena Ramirez MD Weakness Discharge Disposition: Discharged to home or Selfcare 03/11/2025 Travel from Last 3 Months Immunizations Immunization Administration Dates Next Due Covid-19, Mrna, Lnp-s, Pf, 3 0 Mcg/0.3 Ml Dose, Kane-sucrose (Pfizer rausch top) 05/19/2022,04/26/2022 Influenza Vaccine, MDCK,quad rivalent, pres free 04/26/2022 Influenza Vaccine, Quadrivalent, PF 03/05/2023,1 07/16/2020,04/25/2019 Pneumococcal conjugate PCV20 , polysaccharide [id number] conjugate, adjuvant, PF 03/05/2023 TDAP Vaccine 12/07/2017 Social History Tobacco Use Types Packs/Day Years Used Date Smoking Tobacco: Every Day Cigarettes Smokeless Tobacco: Never Tobacco Cessation:Ready to Q uit: No; Counseling Given: No Alcohol Use Standard Drinks/Week Comments No 0 [...] on file Sexual Orientation Not on file Last Filed Vital Signs Vital Sign Reading Time Taken Comments Blood Pressure 123/80 03/11/2025 8:56 AM CDT Pulse 88 03/11/2025 11:01 AM CDT Temperature 36 C (96.8 F) 03/11/2025 8:56 AM CDT Respiratory Rate 16 03/11/2025 11:01 AM CDT Oxygen Saturation 99% 03/11/2025 11:01 AM CDT Inhaled Oxygen Concentration - - Weight 90.7 kg (200 lb) 03/11/2025 8:56 AM CDT Height 160 cm (5' 3) 03/11/2025 8:56 AM CDT Body Mass Index 35.43 03/11/2025 8:56 AM CDT Plan of Treatment Health Maintenance Due Date Last Done Comments Hepatitis C Virus (HCV) Screening 1985 Mammogram 1985 Hepatitis B Immunization (1 of 3 - 19+ 3-dose series) 2004 Pap Smear 2006 Human Papillomavirus (HPV) Immunization (1 - 3-dose SCDM series) 2012 Cervical Cancer Screening (CCS) 2015 HPV/Cotest 2015 Medicare Initial AWV [id number] 02/21/2017 Influenza Immunization (#1) 01/22/202502/21, 04/26/2022, 05/15/2021, Additional history exists SARS-COV-2 Immunization ( season) 2025 05/19/2022, 04/26/2022 Discussion re Starting/Frequency of Mammograms 2025 Td Immunization Every 10 Years (Adults With 1 Tdap) 12/08/2027 12/07/2017 Respiratory Syncytial Virus (RSV) Immunization (Adult) (1 - 1-dose 75+ series) 2060 DTaP/Tdap/Td Immunization Discontinued 12/07/2017 Pneumococcal Immunization Combined Aged Out 03/05/2023 No longer eligible based on patient's age to complete this topic Meningococcal Immunization (ACWY) Aged Out No longer eligible based on patient's age to complete this topic Rotavirus Immunization Aged Out No lo nger eligible based on patient's age to complete this topic Procedures Procedure Name Priority Date/Time Associated Diagnosis Comments URINALYSIS (UA) MACROSCOPIC STAT 03/11/2025 10:25 AM CDT CBC WITH AUTO DIFFERENTIAL STAT 03/11/2025 9:17 AM CDT POCT URINE HCG () STAT 03/11/2025 9:17 AM CDT CMP (COMPREHENSIVE METABOLIC PANEL) STAT 03/11/2025 9:17 AM CDT COMPLETE BLOOD COUNT (CBC) WITH DIFF STAT 03/11/2025 9:17 AM CDT RSV,SARS-COV-2,INFLUE NZA A&B BY PCR STAT 03/11/2025 9:05 AM CDT from Last 3 Months Results * (ABNORMAL) Urinalysis (Ua) Macroscopic [id number] (03/11/2025 10:25 AM CDT) [facility] SPECIFIC GRAVITY 1.015 1.003 - 1.030 03/11/2025 10:53 AM CDT [facility] URINE PH 6.0 5.0 - 9.0 03/11/2025 10:53 AM CDT [facility] WBC ESTERASE Negative Negative 03/11/2025 10:53 AM CDT [facility] NITRITE Negative Negative 03/11/2025 10:53 AM CDT [facility] PROTEIN, RANDOM URINE Negative Negative 03/11/2025 10:53 AM CDT [facility] URINE GLUCOSE, QUAL Negative Negative 03/11/2025 10:53 AM CDT [facility] URINE KETONES Negative Negative 03/11/2025 10:53 AM CDT [facility] UROBILINOGEN Normal Normal mg/dL 03/11/2025 10:53 AM CDT [facility] URINE BLOOD 25 /uL(A) Negative mitchell/ul 03/11/2025 10:53 AM CDT [facility] URINALYSIS COLOR Yellow 03/11/20 10:53 AM CDT [facility] URINALYSIS CLARITY Clear 03/11/2025 10:53 AM CDT [facility] Urine Non-Phlebotomy Collection / Unknown 03/11/2025 10:25 AM CDT 03/11/2025 10:32 AM CDT us Ena Ramirez MD URINE ORDERABLES Final Result [facility] [address] [place] [address] * (ABNORMAL) CBC with Auto Differential (03/11/2025 9:17 AM CDT) [facility] WBC 8.02 4.00 - 12.00 10(3)/[facility] 03/11/2025 10:13 AM CDT [facility] RBC 4.27 3.80 - 5.30 10(6)/[facility] 03/11/2025 10:13 AM CDT [facility] HEMOGLOBIN (HGB) 9.8(L) 12.0 - 15.8 g/dL 03/11/2025 10:13 AM CDT [facility] HEMATOCRIT (HCT) 33.6(L) 36.0 - 47.0 % 03/11/2025 10:13 AM CDT [facility] MCV 78.7(L) 82.0 - 96.0 fL 03/11/2025 10:13 AM CDT [facility] MCH 23.0(L) 26.0 - 34.0 pg 03/11/2025 10:13 AM CDT [facility] MCHC 29.2(L) 31.0 - 36.0 g/dL 03/11/2025 10:13 AM CDT [facility] PLATELET COUNT 449(H) 140 - 440 10(3)/[facility] 03/11/2025 10:13 AM CDT [facility] RDW 23.7(H) 11.8 - 15.5 % 03/11/2025 10:13 AM CDT [facility] MPV 11.3 9.7 - 12.4 fL 03/11/2025 10:13 AM CDT [facility] NEUTROPHILS 61.6 47.0 - 73.0 % 03/11/2025 10:13 AM CDT [facility] LYMPHOCYTES 23.4 18.0 - 42.0 % 03/11/2025 10:13 AM CDT [facility] MONOCYTES 5.9 4.0 - 12.0 % 03/11/2025 10:13 AM CDT [facility] EOSINOPHILS 7.7(H) 0.0 - 5.0 % 03/11/2025 10:13 AM CDT [facility] BASOPHILS 1.0 0.0 - 1.0 % 03/11/2025 10:13 AM CDT [facility] IMMATURE GRANULOCYTE 0.4 0.0 - 0.4 % 03/11/2025 10:13 AM CDT [facility] ABSOLUTE NEUTROPHILS 4.94 1.60 - 7.70 10(3)/[facility] 03/11/2025 10:13 AM CDT [facility] ABSOLUTE LYMPHOCYTES 1.88 1.30 - 3.20 10(3)/[facility] 03/11/2025 10:13 AM CDT [facility] ABSOLUTE MONOCYTES 0.47 0.20 - 1.00 10(3)/[facility] 03/11/2025 10:13 AM CDT [facility] ABSOLUTE EOSINOPHIL 0.62(H) 0.00 - 0.40 10(3)/[facility] 03/11/2025 10:13 AM CDT [facility] ABSOLUTE BASOPHILS 0.08 0.00 - 0.10 10(3)/[facility] 03/11/2025 10:13 AM CDT [facility] ABSOLUTE IMMATURE GRANULOCYTE 0.03 0.00 - 0.03 10 (3) mcL. 03/11/2025 10:13 AM CDT [facility] NRBC PER 100 WBC 0 03/11/20 10:13 AM CDT [facility] RESULTS ARE CONSISTENT WITH PERIPHERAL SMEAR REVIEW Yes 03/11/2025 10:13 AM CDT [facility] POIKILOCYTOSIS 1+ 03/11/2025 10:13 AM CDT [facility] TARGET Present 03/11/2025 10:13 AM CDT [facility] OVALOCYTES Present 03/11/2025 10:13 AM CDT [facility] Blood Venipuncture / Unknown 03/11/2025 9:17 AM CDT 03/11/2025 9:26 AM CDT us Ena Ramirez MD HEMATOLOGY ORDERABLES Final R esult [facility] [address] [place] [address] * (ABNORMAL) Comprehensive Metabolic Panel (Cmp) [id number] (03/11/2025 9:17 AM CDT) SODIUM 139 136 - 145 mmol/L 03/11/2025 10:02 AM CDT [facility] POTASSIUM 3.8 3.5 - 5.1 mmol/L 03/11/2025 10:02 AM CDT [facility] CHLORIDE 106 98 - 107 mmol/L 03/11/2025 10:02 AM CDT [facility] CO2, VENOUS 24 22 - 30 mmol/L 03/11/2025 10:02 AM CDT [facility] ANION GAP 12.8 <18.0 mmol/L 03/11/2025 10:02 AM CDT [facility] GLUCOSE 99 70 - 99 mg/dL 03/11/2025 10:02 AM CDT [facility] BUN 7 5 - 18 mg/dL 03/11/2025 10:02 AM CDT [facility] CREATININE, BLOOD 0.63 0.60 - 1.00 mg/dL 03/11/2025 10:02 AM CDT [facility] BUN/CREATININE RATIO 11(L) 12 - 20 ratio 03/11/2025 10:02 AM CDT [facility] TOTAL PROTEIN 6.8 6.0 - 8.0 g/dL 03/11/2025 10:02 AM CDT [facility] ALBUMIN 3.9 3.5 - 5.0 g/dL 03/11/2025 10:02 AM CDT [facility] A/G RATIO 1.3 1.0 - 2.2 03/11/2025 10:02 AM CDT [facility] CALCIUM 9.2 8.7 - 10.5 mg/dL 03/11/2025 10:02 AM CDT [facility] T BILI 0.3 0.2 - 1.2 mg/dL 03/11/2025 10:02 AM CDT [facility] SGOT (AST) 15 <43 U/L 03/11/2025 10:02 AM CDT [facility] SGPT (ALT) 9 <56 U/L 03/11/2025 10:02 AM CDT [facility] ALKALINE PHOSPHATASE 63 40 - 150 U/L 03/11/2025 10:02 AM CDT [facility] GFR, ESTIMATED >60 >=60 03/11/2025 10:02 AM CDT [facility] Comment: Creatinine Clearance is the preferred criteria for selecting drug dose adjustments in renally impaired patients. The GFR is provided as additional pertinent clinical information. GFR is reported in mL/min/1.73 sq m. Calculation based on the 2020 Chronic Kidney Disease Epidemiology Collaboration (CKD-EPI) equation refit without adjustment for race. GFR, EST. >60 >=60 10:02 AM CDT [facility] Comment: Creatinine Clearance is the preferred criteria for selecting drug dose adjustments in renally impaired patients. The GFR is provided as additional pertinent clinical information. GFR is reported in mL/min/1.73 sq m. Calculation based on the 2009 Chronic Kidney Disease Epidemiology Collaboration (CKD-EPI). GFR, EST. NONAFRICAN >60 >=60 03/11/2025 10:02 AM CDT [facility] Comment: Creatinine Clearance is the preferred criteria for selecting drug dose adjustments in renally impaired patients. The GFR is provided as additional pertinent clinical information. GFR is reported in mL/min/1.73 sq m. Calculation based on the 2009 Chronic Kidney Disease Epidemiology Collaboration (CKD-EPI). Blood Venipuncture / Unknown 03/11/2025 9:17 AM CDT 03/11/2025 9:26 AM CDT us Ena Ramirez MD CHEMISTRY ORDERABLES Final Re sult [facility] [address] [place] [address] * POCT Urine HCG () (03/11/2025 9:17 AM CDT) POC URINE Negative POC URINE CONTROL Contact Center Professional Pass Urine 03/11/2025 9:17 AM CDT Ena Ramirez MD POINT OF CARE TESTING (MANUAL ) Final Result * RSV,SARS-COV-2,INFLUENZA A&B BY PCR (03/11/2025 9:05 AM CDT) FLU A Negative Negative, Error 03/11/2025 9:49 AM CDT [facility] FLU B Negative Negative 03/11/2025 9:49 AM CDT [facility] RESP SYNC VIRUS Negative Negative 9:49 AM CDT [facility] SARSCOV2 NOT DETECTED (Reference Range for this test is Not Detected) 03/11/2025 9:49 AM CDT [facility] Comment:This test was perfor med by a Reverse Languages And Literature Instructor PCR Method. Nasal NASOPHARYNGEAL SWAB / Unknown Non-Phlebotomy Collection / Unknown 03/11/2025 9:05 AM CDT 03/11/2025 9:11 AM CDT Ena Ramirez MD MICROBIOLOGY - GENERAL ORDERA BLES Final Result [facility] [address] [place] [address] from Last 3 Months Insurance MEDICARE C [employer] Care Teams Drapery Maker Relationship Specialty Start Date End Date Betty Lao [address] [place] [address] PCP - General Physician Communications Electrician Supervisor 05/15/21 Isabella Serna MD Psychiatry 08/28/16
--- OUTSIDE RECORDS SUMMARY | 2025-03-29 15:23 | XMS_ITS | Encounter Summary ---
Author Organization [facility] Address [address] [place] [address] Phone Care Team Providers Care Telepathist Name Role Phone Isabella Serna MD Unavailable [phone] Betty Lao Primary Care Provider + Reason for Visit * Reason Comments Medication Refill Encounter Details Date Type Department Care Team (Late st Contact Info) Description 10/07/2023 Refill [facility] [address] [place] [address] Betty Lao [address] [place] [address] Medication Refill Social History Tobacco Use Types [...] Pending Prescriptions Disp Refills ergocalciferol (VITAMIN D) 10945 UNIT Capsule [Pharmacy Med Name: VITAMIN D2 1.25MG(50,000 UNIT)] 12 Capsule 1 Sig: TAKE 1 CAPSULE BY MOUTH ONCE A WEEK Vitamin Supplements (Adult) Protocol Passed - 10/07/2023 3:22 PM Passed - Visit with relevant provider in past 12 months or upcoming 90 days Recent Visits Date Type Provider Dept 03/05/23 Office Visit Betty Lao PAC [facility] Showing recent visits within past 365 days [...] documented as of this encounter Care Teams Telepathist Relationship Specialty Start Date End Date Betty Lao [address] [place] [address] PCP - General Physician Senior Accountant Analyst 05/15/21 Isabella Serna MD Psychiatry 08/28/16 documented as of this encounter
--- OUTSIDE RECORDS SUMMARY | 2025-03-29 15:23 | XMS_ITS | Patient Health Record ---
Author Organization [facility] Address [address] [place] [address] Care Team Providers Care Kiln Operator Helper Name Role Phone Becka Biswas Primary Care Provider Patel Swan Unavailable Reason For Referral Reason therapy Diagnosis 1 Schizophrenia (F20.9 ) Referral Organization [facility] Referring Provider First Name Becka Referring Provider Last Name True Referring Provider Speciality Psychiatry Referred Provider Specialty Behavioral [facility] Clinical Notes Dayana Vaughn 2024 09:41:09 AM > Clinician attempted to contact client but the number on file is for the client's mother (for client, use the [phone] number). Clinician attempted to contact client through the update phone number. Client did not answer and clinician was unable to leave a voicemail at this time., Dayana Vaughn 03/27/2025 10:03:49 AM > Clinician attempted to contact client through the update phone number. Client did not answer and clinician was unable to leave a voicemail at this time. Referral Priority Routine Medications Medication SIG (Take, Route, Frequency, Duration) Notes Start Date End Date Status Thiamine Active Ferrous Gluconate 324 (38 Fe) MG 1 tablet Orally twice a day Active Haloperidol Decanoate 100 MG/ML 2 ML (200mg total) into the muscle every 28 days Intramuscular every 28 days Acti ve Propranolol HCl 10 MG 1 tablet on an empty stomach Orally 3 times a day; Duration: 15 days As needed 03/07/2025 Active traZODone HCl 50 MG 1 tablet at bedtime as needed Orally Once a day; Duration: 15 days 03/15/2025 Active Haloperidol 10 MG 1 tablet Orally twice a day Active Social History Sex Assigned At : Social History Observation Description Sex Assigned At Female Problems Problem Type SNOMED Code ICD Code Onset Dates Problem Status W/U Status Risk Notes Problem Schizophrenia (58615532) Schizophrenia (F20.9) Active confirmed Problem Overweight (076615926) Over weight (E66.3) Active confirmed Vital Signs Heart Rate 89 /min 03/27/2025 Temperature 98.0 degrees Fahrenheit 03/27/2025 Respiratory Rate 18 /min 03/27/2025 Oximetry 98 % 03/27/2025 Blood pressure diastolic 60 mm Hg 03/27/2025 Height 66 in 03/27/2025 Blood pressure systolic 100 mm Hg 03/27/2025 Weight 182.6 lbs lbs 03/27/2025 BMI 29.47 kg/m2 03/27/2025 Encounters Encounter Location Date Provider Diagnosis [facility] [address] [place] [address] 03/27/2025 Becka True Schizophrenia F20.[address] [facility] [place] [address] 03/07/2025 Becka True Schizophrenia F20.9 and Over weight E66.[address] [facility] [place] [address] 03/07/2025 Patel Swan [address] [place] [address] 03/15/2025 Becka True Schizophrenia F20.[address] [place] [address] 03/07/2025 Becka True [address] [place] [address] 03/15/2025 Becka True [address] [place] [address] 03/23/2025 Becka True [address] [place] [address] 03/26/2025 Becka True Schizophrenia F20.[address] [place] [address] 03/26/2025 Becka True [address] [address] 03/27/2025 Becka True [address] [address] 03/29/2025 Becka Ramireze Assessments Encounter Date Diagnosis (ICD Code) Assessment Notes Treatment Notes Treatment Clinical Notes Section Notes 03/07/2025 Schizophrenia (ICD-10 - F20.9) Continue haloperidol/Haldol. Take as prescribed. Reviewed purpose (control mood), benefits, and risks including movement disorders - temporary or permanent, drug-induced parkinsonism, fever and rigidity, galactorrhea, amenorrhea, dizziness, sedation, dry mouth, constipation, urinary retention, blurred vision, low blood pressure, fast heart rate, and wt gain. Begin propranolol. Take as prescribed. Reviewed purpose (decrease anxiety and panic attacks), benefits, and risks - including low pulse rate, low blood pressure, sexual dysfunction, wheezing/asthma attack, weight gain, increased blood sugar, and sedation. 03/15/2025 Schizophrenia (ICD-10 - F20.9) Continue haloperidol/Haldol. Take as prescribed. Reviewed purpose (control mood), benefits, and risks including movement disorders - temporary or permanent, drug-induced parkinsonism, fever and rigidity, galactorrhea, amenorrhea, dizziness, sedation, dry mouth, constipation, urinary retention, blurred vision, low blood pressure, fast heart rate, and wt gain. Continue propranolol. Take as prescribed. Reviewed purpose (decrease anxiety and panic attacks), benefits, and risks - including low pulse rate, low blood pressure, sexual dysfunction, wheezing/asthma attack, weight gain, increased blood sugar, and sedation. Begin trazodone. Reviewed purpose (help with sleep), benefits, and risks - including increased thoughts or suicidality, inducing kathi, and/or male priapism. 03/26/2025 Schizophrenia (ICD-10 - F20.9) 03/27/2025 Schizophrenia (ICD-10 - F20.9) 03/07/2025 Over weight (ICD-10 - E66.3) 03/07/2025 Other The plan was discussed with the patient/guardian. The treatment recommendations were discussed in depth, including pros and cons of each treatment option, reasonable alternates, reasons, potential benefits, potential risks, interactions, and side-effects of all medications, including pertinent Black box warnings and the use of off label medications. The treatment plan was formulated after verbal agreement of the patient/guardian. Patient/guardian were educated about the importance of medication adherence/compliance. Patient/guardian was advised to contact provider if any medication side effects are noted. The Patient/Guardian asked appropriate questions, verbalized understanding of the treatment, and decided to accept the treatment and continue being followed. Alternatives and expected course without treatment were reviewed. The Patient/Guardian is aware of the need to contact the office or return for an earlier appointment if any problems or concerns arise. A safety plan was discussed with the patient/guardian. The patient/guardian has been explained that for emergencies, if new symptoms arise or existing symptoms worsen, suicidal ideation, homicidal ideation, high risk behaviors, manic symptoms, psychotic symptoms, physical symptoms, or any other symptoms that may be dangerous to self or others, the patient is recommended to seek immediate help by calling the [place] crisis line, 911, or going to the nearest emergency room. Patient/guardian verbalized ability and intention to follow with the safety plan. No acute safety concerns. Patient's/guardian's preferences addressed, prefers plan as outlined. Greater than 50% of time spent on coordination and counseling where psychopharmacology as well as psychotherapeutic interventions were discussed along with review of treatments in the past. Encouraged healthy lifestyle choices, including eating healthy foods, taking part in physical activity as tolerated and safe, and maintaining good sleep hygiene. Patient advised to follow up with PCP for chronic medical conditions. No additional questions. May self-administer or be administered own oral medication per [facility]. Provided informed consent with understanding of side effects, risks and benefits as well as alternative treatments as previously discussed and with the above recommended medications and other aspects of the treatment program. Agrees to return sooner if symptoms worsen or suicidal or homicidal ideations occur. Support and education provided concerning illness and treatment plan, risks and benefits, pt verbalized understanding of the same and agreeable Engaged individual in suicide risk assessment. Provided risk based intervention to ensure safety and linkage to ongoing services. Follow up in 1 week. 03/07/2025 Other Interior Specialist met with Elsy Clark to assist in working on building skills to help the consumer gain confidence in their independent living skills. The keno writer/runner practiced with Elsy Clark implementing problem solving skills to help facilitate exploration of optionsto obtain improved mental and physical health. The keno writer/runner encouraged and engaged in critical thinking of how to use natural resources and coping skills to help manage symptoms in the moment. Interior Specialist also worked on modeling and practicing with the consumer healthy coping skills to reduce stress and anxiety including exercise, journaling, and attending all appointments. 03/15/2025 Other The plan was discussed with the patient/guardian. The treatment recommendations were discussed in depth, including pros and cons of each treatment option, reasonable alternates, reasons, potential benefits, potential risks, interactions, and side-effects of all medications, including pertinent Black box warnings and the use of off label medications. The treatment plan was formulated after verbal agreement of the patient/guardian. Patient/guardian were educated about the importance of medication adherence/compliance. Patient/guardian was advised to contact provider if any medication side effects are noted. The Patient/Guardian asked appropriate questions, verbalized understanding of the treatment, and decided to accept the treatment and continue being followed. Alternatives and expected course without treatment were reviewed. The Patient/Guardian is aware of the need to contact the office or return for an earlier appointment if any problems or concerns arise. A safety plan was discussed with the patient/guardian. The patient/guardian has been explained that for emergencies, if new symptoms arise or existing symptoms worsen, suicidal ideation, homicidal ideation, high risk behaviors, manic symptoms, psychotic symptoms, physical symptoms, or any other symptoms that may be dangerous to self or others, the patient is recommended to seek immediate help by calling the [place] crisis line, 911, or going to the nearest emergency room. Patient/guardian verbalized ability and intention to follow with the safety plan. No acute safety concerns. Patient's/guardian's preferences addressed, prefers plan as outlined. Greater than 50% of time spent on coordination and counseling where psychopharmacology as well as psychotherapeutic interventions were discussed along with review of treatments in the past. Encouraged healthy lifestyle choices, including eating healthy foods, taking part in physical activity as tolerated and safe, and maintaining good sleep hygiene. Patient advised to follow up with PCP for chronic medical conditions. No additional questions. May self-administer or be administered own oral medication per [place] Protocols. Provided informed consent with understanding of side effects, risks and benefits as well as alternative treatments as previously discussed and with the above recommended medications and other aspects of the treatment program. Agrees to return sooner if symptoms worsen or suicidal or homicidal ideations occur. Support and education provided concerning illness and treatment plan, risks and benefits, pt verbalized understanding of the same and agreeable Engaged individual in suicide risk assessment. Provided risk based intervention to ensure safety and linkage to ongoing services. Follow up in 2 weeks Plan Of Treatment Next Appt Details Provider Name:Becka Biswas, 04/24/2025 01:00:00 PM, [address], [place], [address], Insurance Providers Payer Name Payer Address Payer Phone Subscriber Number Group Number Insured Name Patient Relationship to Insured Coverage Start Date Coverage End Date [facility] [address] [place] [address] [id number] Elsy Clark Self - patient is the insured [facility] Claims Department [address] [place] [address] [id number] Elsy Clark Self - patient is the insured Medications Administered Medication Instructions Date of Administration Dosage Notes Haldol Decanoate 03/27/2025 200 mg Raine Perez 03/27/2025 01:15 PM INSERTER >Given IM RMD, tolerated well. [facility]# [id number]. Medical (General) History Medical History History ICD Code schizophrenia paranoid personality disorder Hospitalization History Reason Date(Month/Year) bina fleming 02/2025
--- OUTSIDE RECORDS SUMMARY | 2025-03-29 15:23 | XMS_ITS | Encounter Summary ---
Author Organization [facility] Address [address] [place] [address] Phone Care Team Providers Care Front Office Attendant Name Role Phone Isabella Serna MD Unavailable [phone] Betty Lao Primary Care Provider + Reason for Visit * Reason Comments Medication Refill Encounter Details Date Type Department Care Team (Late st Contact Info) Description 12/11/2022 Refill [facility] - [facility] Medicine [facility] [address] [place] [address] Betty Lao PAC [address] [place] [address] Medication Refill Social History Tobacco Use Types [...] documented as of this encounter Care Teams Front Office Attendant Relationship Specialty Start Date End Date Betty Lao PAC [address] [place] [address] PCP - General Physician Operator Specialist Communications 05/15/21 Isabella Serna MD Psychiatry 08/28/16 documented as of this encounter
--- OUTSIDE RECORDS SUMMARY | 2025-03-29 15:23 | XMS_ITS | Encounter Summary ---
Author Organization [facility] Address [address] [place] [address] Phone Care Team Providers Care Drywall Stripper Helper Name Role Phone Isabella Serna MD Unavailable [phone] Betty Lao Primary Care Provider + Reason for Visit * Reason Comments Medication Refill Encounter Details Date Type Department Care Team (Late st Contact Info) Description 09/16/2024 Refill [facility] - Family Medicine [facility] [address] [place] [address] Betty Lao PAC [address] [place] [address] Medication Refill Social History Tobacco Use Types [...] Pending Prescriptions Disp Refills ergocalciferol (VITAMIN D) 78146 UNIT Capsule [Pharmacy Med Name: VITAMIN D2 [...] Provider Dept 09/22/24 Appointment Betty Lao PAC [facility] Showing future appointments within next 90 days [...] documented as of this encounter Care Teams Drywall Stripper Helper Relationship Specialty Start Date End Date Betty Lao PAC [address] [place] [address] PCP - General Physician Nursing Tech 05/15/21 Isabella Senra MD Psychiatry 08/28/16 documented as of this encounter
--- OUTSIDE RECORDS SUMMARY | 2025-03-29 15:23 | XMS_ITS | Clinical Summary ---
Author Organization [facility] Address [address] [place] [address] Phone Care Team Providers Care Rn Endocrinology Name Role Phone Isabella Serna MD Unavailable Betty Lao Primary Care Provider + Allergies [...] AT BEDTIME 3 Active ergocalciferol (VITAMIN D) 38583 UNIT CapsuleIndicatio ns:Vitamin D deficiency TAKE 1 CAPSULE BY MOUTH ONCE A WEEK 12 Capsule 4 Active Active Problems Problem Noted Date Diagnosed Date Schizoaffective disorder 07/21/2016 Encounters Date Type Department Care Team Description 03/11/2025 8:48 AM CDT - 03/11/2025 11:02 AM CDT Emergency [facility] Emergency [address] [facility] [place] [address] Ena Ramirez MD Weakness Discharge Disposition: Discharged to home or Selfcare 03/11/2025 Travel from Last 3 Months Immunizations Immunization Administration Dates Next Due Covid-19, Mrna, Lnp-s, Pf, 3 0 Mcg/0.3 Ml Dose, Kane-sucrose (Pfizer rausch top) 05/19/2022,04/26/2022 Influenza Vaccine, MDCK,quad rivalent, pres free 04/26/2022 Influenza Vaccine, Quadrivalent, PF 03/05/2023,1 07/16/2020,04/25/2019 Pneumococcal conjugate PCV20 , polysaccharide [id number] conjugate, adjuvant, PF 03/05/2023 TDAP Vaccine 12/07/2017 [...] Months Results * (ABNORMAL) Urinalysis (Ua) Macroscopic [id number] (03/11/2025 10:25 AM CDT) [facility] SPECIFIC GRAVITY 1.015 1.003 - 1.030 03/11/2025 10:53 AM CDT [facility] URINE PH 6.0 5.0 - 9.0 03/11/2025 10:53 AM CDT [facility] WBC ESTERASE Negative Negative 03/11/2025 10:53 AM CDT [facility] NITRITE Negative Negative 03/11/2025 10:53 AM CDT [facility] PROTEIN, RANDOM URINE Negative Negative 03/11/2025 10:53 AM CDT [facility] URINE GLUCOSE, QUAL Negative Negative 03/11/2025 10:53 AM CDT [facility] URINE KETONES Negative Negative 03/11/2025 10:53 AM CDT [facility] UROBILINOGEN Normal Normal mg/dL 03/11/2025 10:53 AM CDT [facility] URINE BLOOD 25 /uL(A) Negative mitchell/ul 03/11/2025 10:53 AM CDT [facility] URINALYSIS COLOR Yellow 03/11/20 10:53 AM CDT [facility] URINALYSIS CLARITY Clear 03/11/2025 10:53 AM CDT [facility] Urine Non-Phlebotomy Collection / Unknown 03/11/2025 10:25 AM CDT 03/11/2025 10:32 AM CDT us Ena Ramirez MD URINE ORDERABLES Final Result [facility] [address] [place] [address] * (ABNORMAL) CBC with Auto Differential (03/11/2025 9:17 AM CDT) [facility] WBC 8.02 4.00 - 12.00 10(3)/[facility] 03/11/2025 10:13 AM CDT [facility] RBC 4.27 3.80 - 5.30 10(6)/[facility] 03/11/2025 10:13 AM CDT [facility] HEMOGLOBIN (HGB) 9.8(L) 12.0 - 15.8 g/dL 03/11/2025 10:13 AM CDT [facility] HEMATOCRIT (HCT) 33.6(L) 36.0 - 47.0 % 03/11/2025 10:13 AM CDT [facility] MCV 78.7(L) 82.0 - 96.0 fL 03/11/2025 10:13 AM CDT [facility] MCH 23.0(L) 26.0 - 34.0 pg 03/11/2025 10:13 AM CDT [facility] MCHC 29.2(L) 31.0 - 36.0 g/dL 03/11/2025 10:13 AM CDT [facility] PLATELET COUNT 449(H) 140 - 440 10(3)/[facility] 03/11/2025 10:13 AM CDT [facility] RDW 23.7(H) 11.8 - 15.5 % 03/11/2025 10:13 AM CDT [facility] MPV 11.3 9.7 - 12.4 fL 03/11/2025 10:13 AM CDT [facility] NEUTROPHILS 61.6 47.0 - 73.0 % 03/11/2025 10:13 AM CDT [facility] LYMPHOCYTES 23.4 18.0 - 42.0 % 03/11/2025 10:13 AM CDT [facility] MONOCYTES 5.9 4.0 - 12.0 % 03/11/2025 10:13 AM CDT [facility] EOSINOPHILS 7.7(H) 0.0 - 5.0 % 03/11/2025 10:13 AM CDT [facility] BASOPHILS 1.0 0.0 - 1.0 % 03/11/2025 10:13 AM CDT [facility] IMMATURE GRANULOCYTE 0.4 0.0 - 0.4 % 03/11/2025 10:13 AM CDT [facility] ABSOLUTE NEUTROPHILS 4.94 1.60 - 7.70 10(3)/[facility] 03/11/2025 10:13 AM CDT [facility] ABSOLUTE LYMPHOCYTES 1.88 1.30 - 3.20 10(3)/[facility] 03/11/2025 10:13 AM CDT [facility] ABSOLUTE MONOCYTES 0.47 0.20 - 1.00 10(3)/[facility] 03/11/2025 10:13 AM CDT [facility] ABSOLUTE EOSINOPHIL 0.62(H) 0.00 - 0.40 10(3)/[facility] 03/11/2025 10:13 AM CDT [facility] ABSOLUTE BASOPHILS 0.08 0.00 - 0.10 10(3)/[facility] 03/11/2025 10:13 AM CDT [facility] ABSOLUTE IMMATURE GRANULOCYTE 0.03 0.00 - 0.03 10 (3) mcL. 03/11/2025 10:13 AM CDT [facility] NRBC PER 100 WBC 0 03/11/20 10:13 AM CDT [facility] RESULTS ARE CONSISTENT WITH PERIPHERAL SMEAR REVIEW Yes 03/11/2025 10:13 AM CDT [facility] POIKILOCYTOSIS 1+ 03/11/2025 10:13 AM CDT [facility] TARGET Present 03/11/2025 10:13 AM CDT [facility] OVALOCYTES Present 03/11/2025 10:13 AM CDT [facility] Blood Venipuncture / Unknown 03/11/2025 9:17 AM CDT 03/11/2025 9:26 AM CDT us Ena Ramirez MD HEMATOLOGY ORDERABLES Final R esult [facility] [address] [place] [address] * (ABNORMAL) Comprehensive Metabolic Panel (Cmp) [id number] (03/11/2025 9:17 AM CDT) SODIUM 139 136 - 145 mmol/L 03/11/2025 10:02 AM CDT [facility] POTASSIUM 3.8 3.5 - 5.1 mmol/L 03/11/2025 10:02 AM CDT [facility] CHLORIDE 106 98 - 107 mmol/L 03/11/2025 10:02 AM CDT [facility] CO2, VENOUS 24 22 - 30 mmol/L 03/11/2025 10:02 AM CDT [facility] ANION GAP 12.8 <18.0 mmol/L 03/11/2025 10:02 AM CDT [facility] GLUCOSE 99 70 - 99 mg/dL 03/11/2025 10:02 AM CDT [facility] BUN 7 5 - 18 mg/dL 03/11/2025 10:02 AM CDT [facility] CREATININE, BLOOD 0.63 0.60 - 1.00 mg/dL 03/11/2025 10:02 AM CDT [facility] BUN/CREATININE RATIO 11(L) 12 - 20 ratio 03/11/2025 10:02 AM CDT [facility] TOTAL PROTEIN 6.8 6.0 - 8.0 g/dL 03/11/2025 10:02 AM CDT [facility] ALBUMIN 3.9 3.5 - 5.0 g/dL 03/11/2025 10:02 AM CDT [facility] A/G RATIO 1.3 1.0 - 2.2 03/11/2025 10:02 AM CDT [facility] CALCIUM 9.2 8.7 - 10.5 mg/dL 03/11/2025 10:02 AM CDT [facility] T BILI 0.3 0.2 - 1.2 mg/dL 03/11/2025 10:02 AM CDT [facility] SGOT (AST) 15 <43 U/L 03/11/2025 10:02 AM CDT [facility] SGPT (ALT) 9 <56 U/L 03/11/2025 10:02 AM CDT [facility] ALKALINE PHOSPHATASE 63 40 - 150 U/L 03/11/2025 10:02 AM CDT [facility] GFR, ESTIMATED >60 >=60 03/11/2025 10:02 AM CDT [facility] Comment: Creatinine Clearance is the preferred criteria for selecting drug dose adjustments in renally impaired patients. The GFR is provided as additional pertinent clinical information. GFR is reported in mL/min/1.73 sq m. Calculation based on the 2020 Chronic Kidney Disease Epidemiology Collaboration (CKD-EPI) equation refit without adjustment for race. GFR, EST. >60 >=60 10:02 AM CDT [facility] Comment: Creatinine Clearance is the preferred criteria for selecting drug dose adjustments in renally impaired patients. The GFR is provided as additional pertinent clinical information. GFR is reported in mL/min/1.73 sq m. Calculation based on the 2009 Chronic Kidney Disease Epidemiology Collaboration (CKD-EPI). GFR, EST. NONAFRICAN >60 >=60 03/11/2025 10:02 AM CDT [facility] Comment: Creatinine Clearance is the [...] Ramirez MD CHEMISTRY ORDERABLES Final Re sult [facility] [address] [place] [address] * POCT Urine HCG () (03/11/2025 9:17 AM CDT) POC URINE Negative POC URINE CONTROL Cleaner Laboratory Equipment Pass Urine 03/11/2025 9:17 AM CDT Ena Ramirez MD POINT OF CARE TESTING (MANUAL ) Final Result * RSV,SARS-COV-2,INFLUENZA A&B BY PCR (03/11/2025 9:05 AM CDT) FLU A Negative Negative, Error 03/11/2025 9:49 AM CDT [facility] FLU B Negative Negative 03/11/2025 9:49 AM CDT [facility] RESP SYNC VIRUS Negative Negative 9:49 AM CDT [facility] SARSCOV2 NOT DETECTED (Reference Range for this test is Not Detected) 03/11/2025 9:49 AM CDT [facility] Comment:This test was perfor med by a [employer] PCR Method. Nasal NASOPHARYNGEAL SWAB / Unknown Non-Phlebotomy Collection / Unknown 03/11/2025 9:05 AM CDT 03/11/2025 9:11 AM CDT Ena Ramirez MD MICROBIOLOGY - GENERAL ORDERA BLES Final Result [facility] [address] [place] [address] from Last 3 Months Insurance MEDICARE C [employer] Care Teams Rn Endocrinology Relationship Specialty Start Date End Date Betty Lao [address] [place] [address] PCP - General Physician Card Hanger 05/15/21 Isabella Serna MD Psychiatry 08/28/16
== END 2025-03-29 04:30 ==
PROVIDERS: Emergency Provider Registered Nurse
DX: F20.0 Paranoid schizophrenia (principal); F31.9 Bipolar disorder, unspecified; Z20.822 Contact with and (suspected) exposure to COVID-19; F17.210 Nicotine dependence, cigarettes, uncomplicated; Z85.6 Personal history of leukemia; Z79.899 Other long term (current) drug therapy
CPT/HCPCS: 36415; 80053; 80143; 80179; 80307; 81001; 81025; 82077; 84443; 85025; 85055; 87637; 99285; A9270